=== PATIENT | female | born 1965 | race Caucasian/White ===

== ENCOUNTER 2021-07-11 08:46 | Outpatient (REF) | payer OTHER, SELFPAY ==
[2021-07-11 11:28] LABS: Appearance Urine CLEAR; Color Urine YELLOW; Glucose Urine UA NEG (NEG); Leukocyte Esterase Urine 1+ (NEG); Nitrite Urine NEG (NEG); PH 5.5 (5.0-8.0); Specific Gravity - Urine 1.015 (1.005-1.025); UACC Culture Trigger YES; Urine Blood NEG (NEG); Urine Ketones NEG (NEG); Urine Protein NEG (NEG-TRACE)
[2021-07-11 11:38] LABS: RBC Urine 0-2 /HPF (0); Squamous Epithelial Cell Urine 1+ /LPF; WBC Urine 0-2 /HPF (0-4)
[2021-07-11 11:39] LABS: Bacteria Urine TRACE /LPF
[2021-07-11 11:55] LABS: Alanine Aminotransferase 14 U/L (0-31); Albumin Level 4.3 g/dL (3.5-5.0); Alkaline Phosphatase 86 U/L (39-117); Anion Gap 14 (12-20); Aspartate Amino Transferase 16 U/L (5-31); Bilirubin Total 0.5 mg/dL (0.0-1.0); Blood Urea Nitrogen 10 mg/dL (9-16); Calcium 9.7 mg/dL (8.4-10.2); Carbon Dioxide 29 mmol/L (22-29); Chloride 105 mmol/L (96-108); Cholesterol 273 mg/dL; Estimated Glomerular Filt Rate > 60; Glucose Fasting 93 mg/dL (60-99); HDL Cholesterol 71 mg/dL; LDL Cholesterol Calculated 180 mg/dl; Sodium 143 mmol/L (135-145); Total Protein 7.2 g/dL (6.5-8.0); Triglycerides 112 mg/dL
[2021-07-11 12:17] LABS: TSH reflex Free T4 3.81 uIU/mL (0.32-4.0)
== END 2021-07-11 08:47 | disposition home or self-care (01) ==
LOC: HO.HMGCLDS 08:46
PROVIDERS: Visit Provider Nurse Practitioner Family
DX: Z00.00 Encounter for general adult medical examination without abnormal findings (principal); E78.5 Hyperlipidemia, unspecified; Z13.29 Encounter for screening for other suspected endocrine disorder
CPT/HCPCS: 36415; 80053; 80061; 81001; 84443; 87086; 87147

== ENCOUNTER → 2021-09-16 07:30 | Outpatient (REF) | payer OTHER, SELFPAY ==
--- NOTE | 2021-09-16 07:32 | CA_ITS ---
Transthoracic Echocardiogram Patient (Last, First, Middle): Kassidy Loredo, Gender: Female Date of : 1965 Age: 56 Procedure Date: 09/16/2021 Procedure Type: Transthoracic Echocardiogram Location: OP Height: 162.56 cm Weight: 58.97 kg BSA: 1.63 m2 Heart Rate: bpm BP: 146 / 78 mmHg [place] Head: DUC Referring MD: Blu Celis [facility] Symptoms: R01.1 - Cardiac murmur, unspecified Study Quality: Fair Conclusions: - Normal left ventricular size and systolic function. There is mildly increased left ventricular wall thickness. The visually estimated ejection fraction is between 55-60%. There is no evidence of regional wall motion abnormalities. Diastolic function is normal for age. - Normal right ventricular cavity size and systolic function. Findings Left Ventricle Normal left ventricular size and systolic function. There is mildly increased left ventricular wall thickness. The visually estimated ejection fraction is between 55-60%. There is no evidence of regional wall motion abnormalities. Diastolic function is normal for age. Right Ventricle Normal right ventricular cavity size and systolic function. Atria Both atria are normal in size. Aortic Valve Normal aortic valve structure and function. There is no aortic valve stenosis. There is no aortic valve regurgitation. Mitral Valve The mitral valve appears normal. There is trace mitral valve regurgitation. There is no mitral valve stenosis. Pulmonic Valve The pulmonic valve is likely normal. Tricuspid Valve Normal tricuspid valve structure. There is no tricuspid valve regurgitation. Normal right atrial pressure. There is no evidence of pulmonary hypertension. Great Vessels All visible segments of the aorta are normal in size. Venous The inferior vena cava is normal in size and collapses greater than 50% with inspiration. Pericardium/Pleural There is no evidence of pericardial effusion. Prior Study Comparison No prior study available for comparison. Measurements 2D Linear Measurements IVSd: 0.91 0.6-0.9/0.6-1.0 cm LVIDd: 4.54 3.9-5.3/4.2-5.9 cm LVIDd Index: 2.79 2.4-3.2/2.2-3.1 cm/m2 LVIDs: 3.23 2.0-3.6 cm LVPWd: 0.96 0.7-1.1 cm LA Diam: 3.40 2.7-3.8/3.0-4.0 cm LAIDs Index: 2.09 1.5-2.3 cm/m2 LV Mass: 176.08 67-162/88-224 g LV Mass Index: 108.02 43-95/49-115 g/m2 LVOT Diam: 1.90 3.0+(-)1.3 cm 2D Systolic Function EF 4C: 60.80 >55% EF 2C: 70.00 >55% EF BiP: 66.90 >55% Mitral Valve MV Pk E: 0.87 MV PK A: 0.80 MV Decel Time: 255.00 E/A: 1.10 E'Lateral: 10.10 E'Medial: 6.64 E/E' Med: 13.10 E/E' Lat: 8.60 PHT: 76.00 MVA PHT: 2.89 Decel Eagle: 3.35 Aortic Valve AoV Pk Aakash: 1.38 AoV Mn Aakash: 0.93 AoV VTI: 0.33 AoV Pk Grad: 8.00 Aov Mn Grad: 4.00 NIDHI Cont.VTI: 2.09 LVOT LVOT Pk Aakash: 1.02 LVOT Mn Aakash: 0.69 LVOT VTI: 0.24 LVOT Pk Grad: 4.00 LVOT Mn Grad: 2.00 LVOT Diam: 1.90 LVOT Area: 2.84 Diastolic Function MV Pk E: 0.87 MV Pk A: 0.80 E/A: 1.10 E'Medial: 6.64 E/E' Med: 13.10 E' Laterial: 10.10 E/E' Lat: 8.60 Right Ventricle TAPSE (mm): 26.50 TVS' Aakash: 9.46 Tricuspid Valve TR Pk Aakash: 1.82 TR Pk Grad: 13.00 RA Press: 3.00 RVSP: 16.00 Great Vessels Aorta Sinus of Valsalva: 3.12 2.0-3.[address] Ridge: 2.40 1.7-3.4 cm Ao Asc: 3.10 2.1-3.4 cm Ao Arch: 2.60 Updated in Other Vendor System with Status of Final Danial Robles MD electronically signed on 09/17/2021 11:17:29 PM with status of Final
[2021-09-16 09:36] LABS: Alanine Aminotransferase 59 U/L (0-31); Albumin Level 4.4 g/dL (3.5-5.0); Alkaline Phosphatase 96 U/L (39-117); Anion Gap 10 (12-20); Aspartate Amino Transferase 37 U/L (5-31); Bilirubin Total 1.1 mg/dL (0.0-1.0); Blood Urea Nitrogen 12 mg/dL (9-16); Calcium 9.5 mg/dL (8.4-10.2); Carbon Dioxide 31 mmol/L (22-29); Chloride 105 mmol/L (96-108); Cholesterol 224 mg/dL; Estimated Glomerular Filt Rate > 60; Glucose Fasting 95 mg/dL (60-99); HDL Cholesterol 79 mg/dL; LDL Cholesterol Calculated 133 mg/dl; Potassium 4.5 mmol/L (3.3-5.1); Sodium 141 mmol/L (135-145); Total Protein 6.9 g/dL (6.5-8.0); Triglycerides 64 mg/dL
== END ==
LOC: HO.CARD 07:30
PROVIDERS: PCP Nurse Practitioner Family; Visit Provider Nurse Practitioner Family
DX: R01.1 Cardiac murmur, unspecified (principal); R00.2 Palpitations; E78.5 Hyperlipidemia, unspecified
CPT/HCPCS: 36415; 80053; 80061; 93306

== ENCOUNTER 2021-10-01 08:17 | Outpatient (REF) | payer OTHER, SELFPAY ==
--- NOTE | ~2021-10-01 | MM_ITS ---
EXAMINATION: MM SCREENING DIGITAL BREAST TOMOSYNTHESIS, BILATERAL CLINICAL INFORMATION: Screening. Asymptomatic. The lifetime risk of breast cancer based on the Tyrer-Cuzick Model is 8%. COMPARISON: Outside mammography: 07/10/2020, 07/08/2019, 07/03/2017 ([place]) TECHNIQUE: Digital breast tomosynthesis is performed in both the craniocaudal and mediolateral oblique views along with computer-aided detection (CAD). Synthesized 2D images are generated from the tomosynthesis. FINDINGS: The breasts are heterogeneously dense, which may obscure small masses (ACR BI-RADS breast composition Category c). There are no significant masses, abnormal calcifications, or other abnormalities. Parenchymal pattern is similar to prior outside studies. No developing density or interval architectural abnormality. There is a biopsy clip marker again seen posterior upper right breast. The bilateral axilla and skin contours are unremarkable. MM/MM tomosynthesis screening BI IMPRESSION: No mammographic evidence of malignancy. ASSESSMENT: BI-RADS 1: Negative RECOMMENDATION: Routine annual mammography screening. This patient's information was entered into a reminder system with a target due date for their next mammogram.
== END 2021-10-01 08:18 | disposition home or self-care (01) ==
LOC: HO.MAMMO 08:17
PROVIDERS: Visit Provider Nurse Practitioner Family
DX: Z12.31 Encounter for screening mammogram for malignant neoplasm of breast (principal)
CPT/HCPCS: 77063; 77067

== ENCOUNTER 2021-11-05 09:23 | Outpatient (REF) | payer OTHER, SELFPAY ==
[2021-11-05 11:25] LABS: Alanine Aminotransferase 28 U/L (0-31); Alkaline Phosphatase 74 U/L (39-117); Aspartate Amino Transferase 24 U/L (5-31); Bilirubin Direct 0.2 mg/dL (0.0-0.5); Bilirubin Total 0.7 mg/dL (0.0-1.0); Total Protein 6.2 g/dL (6.5-8.0)
[2021-11-07 07:45] LABS: HBS Num1 3.71 mIU/mL (0-7.99); HBc Num1 0.08 S/CO (0.00-0.79); HBsAGNum1 0.21 S/CO (0.00-0.99); Hepatitis B Core Antibody Nonreactive (Nonreactive); Hepatitis B Surface Antigen Negative (Negative); ~HepC Num1 0.13 S/CO (0.00-0.79); ~Hepatitis B Surface Antibody NONREACTIVE (Nonreactive); ~Hepatitis C Antibody Nonreactive (Nonreactive)
[2021-11-09 08:05] LABS: Hepatitis A Antibody IgM 0.18 Index (0-0.79); ~Hepatitis A Antibody IgM Nonreactive (Nonreactive)
== END 2021-11-05 09:24 | disposition home or self-care (01) ==
LOC: HO.HMGCLDS 09:23
PROVIDERS: Visit Provider Nurse Practitioner Family
DX: R74.8 Abnormal levels of other serum enzymes (principal)
CPT/HCPCS: 36415; 80076; 86704; 86706; 86709; 86803; 87340

== ENCOUNTER → 2021-11-10 08:37 | Outpatient (BNVA) | payer OTHER, SELFPAY | PROVIDERS: PCP Nurse Practitioner Family; Referring Provider Nurse Practitioner Family; Visit Provider Nurse Practitioner | DX: Z12.11 Encounter for screening for malignant neoplasm of colon (principal) ==

== ENCOUNTER 2021-11-24 09:12 | Emergency (ER) | payer OTHER, SELFPAY ==
--- NOTE | ~2021-11-24 | XR_ITS ---
EXAMINATION: XR ELBOW, RIGHT CLINICAL INFORMATION: Fall COMPARISON: None TECHNIQUE: AP, lateral, and oblique views of the right elbow. FINDINGS: No fracture or dislocation. Alignment is anatomic. Joint spaces are maintained. No elbow joint effusion. The soft tissues are unremarkable. XR/XR elbow RT 2V IMPRESSION: Normal right elbow.
--- NOTE | ~2021-11-24 | XR_ITS ---
EXAMINATION: XR KNEE, RIGHT CLINICAL INFORMATION: Fall COMPARISON: None TECHNIQUE: Four views of the right knee. FINDINGS: No acute fracture or subluxation. Compartmental joint spaces are maintained. No joint effusion. Enthesophyte formation at the patella. The soft tissues are unremarkable. XR/XR knee RT 4V IMPRESSION: No fracture or malalignment.
--- NOTE | ~2021-11-24 | CT_ITS ---
EXAMINATION: CT HEAD WITHOUT CONTRAST CLINICAL INFORMATION: Fall COMPARISON: None. TECHNIQUE: Contiguous axial imaging was performed from the skull base to vertex without intravenous contrast. This CT examination was performed using dose optimization techniques as appropriate, variously including the following: * Automated exposure control * Adjustment of mA and/or kV according to patient size (this includes techniques or standardized protocols for targeted exams where dose is matched to indication/reason for exam; i.e. extremities or head) Use of iterative reconstruction technique DLP: 622 mGy-cm. FINDINGS: There is no evidence of acute intracranial hemorrhage or territorial infarction. No abnormal mass effect or midline shift is seen. Rodriguez to white matter differentiation is well preserved. No extra-axial fluid collections are identified. No hydrocephalus. Proportional prominence of the ventricles and sulcal spaces is consistent with mild volume loss. Patchy periventricular and deep white matter hypoattenuation is consistent with mild small vessel ischemic changes. The osseous structures and soft tissues are normal. The mastoid air cells are well aerated. Air-fluid level in the right maxillary sinus. Mild mucoperiosteal thickening of the left maxillary sinus. Mild opacification throughout the ethmoid air cells. CT/CT head/brain wo con IMPRESSION: No acute intracranial pathology.
--- NOTE | ~2021-11-24 | XR_ITS ---
EXAMINATION: XR CHEST CLINICAL INFORMATION: Fall COMPARISON: None TECHNIQUE: 2 views of the chest were obtained. FINDINGS: The lungs are well expanded. There is no focal consolidation, edema, or effusion. No pneumothorax. The cardiomediastinal silhouette is within normal limits. No acute osseous abnormality. Epigastric surgical clips. XR/XR chest 2V IMPRESSION: No acute pulmonary finding. No displaced fractures are seen.
[2021-11-24 09:23] VITALS: BP 160/90; BP 165/92; PULSE 60; PULSE 62; RESP 18; TEMP 36.7; O2SAT 98; O2SAT 99; BMI 22.8
--- NOTE | 2021-11-24 09:56 | ED_ITS ---
HPI - Fall General Chief Complaint: Fall Stated Complaint: TRIP/FALL,LIP LAC,R KNEE ABRAS,HEAD PAIN,+CCOLLAR Time Seen by Provider: 11/24/21 09:42 Source: patient Mode of arrival: EMS Limitations: no limitations History of Present Illness MD complaint: fall Onset (ago): minute(s) (just prior to arrival) Fall from: standing Fall witnessed: yes, by bystander Place fall occurred: street (outside of work) Loss of consciousness: none Prolonged down time: no Symptoms prior to fall: none Context: tripped/slipped Location of injury: head, face (lip) and chest Location of injury - extremities: right: arm and knee Severity: moderate Quality: dull and aching Associated symptoms (after fall): headache, chest pain and other (knee and elbow pain) Related Data Home Medications Medication Instructions Recorded Confirmed loratadine 10 mg tablet (Allergy 10 mg PO DAILY PRN 06/30/21 11/10/21 Relief (loratadine)) multivitamin 1 tab PO DAILY 11/10/21 11/10/21 Previous Rx's Medication Instructions Recorded levothyroxine 75 mcg tablet 75 mcg PO DAILY 90 Days #90 tab 08/27/21 citalopram 20 mg tablet 20 mg PO DAILY 90 Days #90 tab 09/24/21 atorvastatin 20 mg tablet 20 mg PO BEDTIME 90 Days #90 tab 11/05/21 losartan 100 mg tablet 100 mg PO DAILY 90 Days #90 tab 11/10/21 ondansetron 4 mg disintegrating 4 mg PO Q8H PRN #20 tab 11/24/21 tablet Allergies Allergy/AdvReac Type Severity Reaction Status Date / Time lisinopril AdvReac Mild Cough Verified 11/24/21 09:23 Review of Systems Review of Systems: Constitutional : No Fever, No Chills ENT/Mouth : No Ear Pain, No Hoarseness, No sore throat Eyes: No Eye Pain, No Swelling, No Redness, No Foreign Body Cardiovascular : pos Chest Pain, No SOB Respiratory : No Cough, No Dyspnea Gastrointestinal : No Nausea, No Vomiting, No Diarrhea, No abdominal Pain Genitourinary : No Dysuria, No Hematuria Musculoskeletal : positive joint pain, No Myalgias, No Joint Swelling Skin : No Skin lacerations, No rash Neuro : No Weakness, No Numbness, No Loss of Consciousness, No Dizziness, pos Headache Psych : No Anxiety/Panic, No Depression Heme/Lymph: no easy bruising, no Lymphadenopathy Endocrine : No Polyuria, No Polydipsia All other systems reviewed and are negative [facility] Past Medical History Attestation statement: The following information was validated with the patient. Medical History Encounter for other plastic and reconstructive surgery following medical procedure or healed injury H/O idiopathic thrombocytopenic purpura HTN (hypertension) Squamous cell carcinoma in situ Surgical History H/O splenectomy H/O squamous cell carcinoma excision History of hysterectomy History of tubal ligation Social History Social History Housing: House Patient Tobacco Use Status: Former Tobacco user Years Smoked: quit 15 years ago e-Cigarette/Vaping Use: Never Used Second Hand Smoke Exposure: No Advance Directives: No Advance Directives Information Provided: No service: No Current occupational status: employed Current occupation: [employer] Current occupational exposures/hazards: Yes Cognitive needs: No Hearing needs: No Vision needs: No Physical Exam Vital Signs: Vital Signs: Last Vital Signs Temp 98.0 F 11/24/21 09:23 Pulse 71 11/24/21 11:21 Resp 18 11/24/21 09:23 BP 159/84 H 11/24/21 11:21 Pulse Ox 99 11/24/21 11:21 BMI result Body Mass Index 22.8 Appearance: Alert. Oriented X3. No acute distress. Eyes: Pupils equal, round and reactive to light. ENT: Pharynx normal. Contused tissue to left upper lip small abrasion noted no laceration, bite normal, no facial pain, nose normal Neck: Normal inspection. Neck supple. collar removed - no midline ttp, full ROM no radicular symptoms CVS: Normal heart rate and rhythm. Pulses normal. Chest: L sided chest wall reproduces pain Respiratory: No respiratory distress. Breath sounds normal. Back: no midline ttp or trauma Abdomen: Soft and nontender. Skin: Skin warm and dry. Normal skin color. Normal skin turgor. Extremities: No lower extremity edema. R elbow abrasion noted but full ROM, R knee abrasion and ecchymosis noted over patella - distal NV intact Neuro: Oriented X 3. No motor deficit. No sensory deficit. Course Course Course Narrative: no acute fractures seen stable for DC GCS 15 MDM - Fall MDM Narrative Medical decision making narrative: 56 yo female with hx of HTN here with mechanical fall outside of her work hit head has abrasion to left upper lip, R knee injury and R elbow injury - at this time will obtain CT head to r/o ICH, R elbow and R knee xray. Tylenol for pain. GCS 15. c/o chest wall pain as well - EKG and CXR ordered. ECG Data Attestation: I personally reviewed and interpreted this ECG as follows: ECG interpretation date: 11/24/21 ECG interpretation time: 11:12 Interpretation: Rate: 58 Rhythm: sinus bradycardia Spearman: normal Normal P waves. Normal JERICHO. Normal QRS complex. ST T wave : normal no JAZZY qTC: normal prior studies: no acute ischemia The study has been interpreted contemporaneously by me. Discharge Plan Discharge Clinical Impression: Contusion, Abrasion, Contusion of knee, Head injury, Abrasion of lip Patient Disposition: Home, Self-Care Instructions: Head Injury (ED), Contusion in Adults (ED), Bone Bruise (ED), Abrasion (ED) Additional Instructions: return to ED for any worsening symptoms or concerns no fractures seen on CT scan, xrays of right elbow or right knee, EKG and chest xray were normal your CT head shows some nonspecific small microvascular disease please follow up with your doctor - likely related to high blood pressure Prescriptions: New ondansetron 4 mg tablet,disintegrating 4 mg PO Q8H PRN (Reason: nausea and vomiting) Qty: 20 0RF No Action levothyroxine 75 mcg tablet 75 mcg PO DAILY 90 Days Qty: 90 0RF citalopram 20 mg tablet 20 mg PO DAILY 90 Days Qty: 90 0RF atorvastatin 20 mg tablet 20 mg PO BEDTIME 90 Days Qty: 90 1RF loratadine [Allergy Relief (loratadine)] 10 mg tablet 10 mg PO DAILY PRN0RF losartan 100 mg tablet 100 mg PO DAILY 90 Days Qty: 90 0RF multivitamin Tablet 1 tab PO DAILY 0RF Referrals: Blu Celis, REHAB/PRE VOCATIONAL COUNSELOR-BC [Primary Care Provider] - 11/28/21 Stand Alone Forms: Work/School Release
--- NOTE | 2021-11-24 10:08 | ECG_ITS ---
Test Reason : fall Blood Pressure : / mmHG Vent. Rate : 058 BPM Atrial Rate : 058 BPM P-R Int : 132 ms QRS Dur : 090 ms QT Int : 438 ms P-R-T Axes : 057 061 063 degrees QTc Int : 429 ms Sinus bradycardia Otherwise normal ECG No previous ECGs available Referred By: Ann Connor Electronically Signed By:NATE MERCHANT MD
[2021-11-24] MEDS: Ibuprofen 600 MG TABLET PO (11:19)
[2021-11-24 11:21] VITALS: BP 159/84; PULSE 71; O2SAT 99
== END 2021-11-24 11:39 | disposition home or self-care (01) ==
PROVIDERS: Emergency Provider Emergency Medicine; PCP Nurse Practitioner Family
DX: S00.511A Abrasion of lip, initial encounter (principal); S09.90XA Unspecified injury of head, initial encounter; S80.01XA Contusion of right knee, initial encounter; S59.901A Unspecified injury of right elbow, initial encounter; I10 Essential (primary) hypertension; W01.0XXA Fall on same level from slipping, tripping and stumbling without subsequent striking against object, initial encounter; Y93.9 Activity, unspecified; Y92.410 Unspecified street and highway as the place of occurrence of the external cause; Y99.0 Civilian activity done for income or pay
CPT/HCPCS: 70450; 71046; 73070; 73564; 93005; 99284

== ENCOUNTER 2022-01-28 08:20 | Outpatient (REF) | payer OTHER, SELFPAY ==
[2022-01-28 11:21] LABS: Alanine Aminotransferase 20 U/L (0-31); Albumin Level 4.2 g/dL (3.5-5.0); Alkaline Phosphatase 84 U/L (39-117); Anion Gap 13 (12-20); Aspartate Amino Transferase 18 U/L (5-31); Bilirubin Total 0.9 mg/dL (0.0-1.0); Blood Urea Nitrogen 13 mg/dL (9-16); Carbon Dioxide 29 mmol/L (22-29); Chloride 104 mmol/L (96-108); Cholesterol 186 mg/dL; Estimated Glomerular Filt Rate > 60; Glucose Fasting 95 mg/dL (60-99); HDL Cholesterol 68 mg/dL; LDL Cholesterol Calculated 108 mg/dl; Potassium 4.4 mmol/L (3.3-5.1); Sodium 142 mmol/L (135-145); Total Protein 6.5 g/dL (6.5-8.0); Triglycerides 51 mg/dL
== END 2022-01-28 08:21 | disposition home or self-care (01) ==
LOC: HO.HMGCLDS 08:20
PROVIDERS: PCP Nurse Practitioner Family; Visit Provider Nurse Practitioner Family
DX: E78.5 Hyperlipidemia, unspecified (principal); R74.8 Abnormal levels of other serum enzymes
CPT/HCPCS: 36415; 80053; 80061

== ENCOUNTER 2022-07-01 09:23 | Outpatient (REF) | payer OTHER, SELFPAY ==
[2022-07-01 11:09] LABS: MANUAL DIFF FLAG NO
[2022-07-01 11:12] LABS: Appearance Urine Clear; Color Urine Yellow; Glucose Urine UA Negative (Negative); Leukocyte Esterase Urine Small (1+) (Negative); Nitrite Urine Negative (Negative); UMIC TRIGGER UACC YES; Urine Blood Negative (Negative); Urine Ketones Negative (Negative); Urine Protein 30 (1+) mg/dL (Neg-Trace)
[2022-07-01 11:12] LABS: Basophils Absolute Auto 0.1 X10*3/uL (0.0-0.2); Basophils Percent Auto 1.4 % (0-2); Eosinophils Absolute Auto 0.6 X10*3/uL (0.0-0.4); Eosinophils Percent Auto 8.2 % (0-4); Hematocrit 43.7 % (37.0-47.0); Hemoglobin 14.3 g/dl (12.0-16.0); Imm Gran Abs Auto 0.02 X10*3/uL (0.00-0.03); Imm Gran Pct Auto 0.3 % (0.0-0.4); Lymphocytes Absolute Auto 2.6 X10*3/uL (1.2-4.9); Lymphocytes Percent Auto 35.3 % (20-40); Mean Corpuscular HGB Conc 32.7 g/dl (31.0-35.0); Mean Corpuscular Hemoglobin 31.5 pg (27.0-33.0); Mean Corpuscular Volume 96.3 fL (80.0-98.0); Mean Platelet Volume 10.7 fL (9.4-12.3); Monocytes Absolute Auto 0.7 X10*3/uL (0.1-1.2); Monocytes Percent Auto 9.3 % (2-11); Neutrophils Absolute Auto 3.4 x10*3/uL (2.0-8.3); Neutrophils Percent Auto 45.5 % (45-73); Platelet Count 424 X10*3/uL (160-400); Red Blood Count 4.54 X10*6/uL (4.20-5.50); Red Cell Distribution Width 13.4 % (11.0-16.0); White Blood Count 7.4 X10*3/uL (4.8-10.8)
[2022-07-01 11:24] LABS: Alanine Aminotransferase 18 U/L (0-31); Albumin Level 4.4 g/dL (3.5-5.0); Alkaline Phosphatase 93 U/L (39-117); Anion Gap 15 (12-20); Aspartate Amino Transferase 20 U/L (5-31); Bilirubin Total 0.9 mg/dL (0.0-1.0); Blood Urea Nitrogen 11 mg/dL (9-16); Calcium 9.6 mg/dL (8.4-10.2); Carbon Dioxide 27 mmol/L (22-29); Chloride 106 mmol/L (96-108); Cholesterol 209 mg/dL; Estimated Glomerular Filt Rate > 60; Glucose Fasting 100 mg/dL (60-99); HDL Cholesterol 69 mg/dL; LDL Cholesterol Calculated 125 mg/dl; Potassium 4.8 mmol/L (3.3-5.1); Sodium 143 mmol/L (135-145); Total Protein 6.7 g/dL (6.5-8.0); Triglycerides 77 mg/dL
[2022-07-01 11:26] LABS: Bacteria Urine None Seen (None Seen); RBC Urine 0-2 /HPF (0-2); UACC Culture Trigger YES; WBC Urine 0-5 /HPF (0-5)
[2022-07-01 11:48] LABS: TSH reflex Free T4 5.61 uIU/mL (0.32-4.0)
[2022-07-01 12:36] LABS: Free T4 (Free Thyroxine) 1.12 ng/dL (0.71-1.85)
== END 2022-07-01 09:24 | disposition home or self-care (01) ==
LOC: HO.HMGCLDS 09:23
PROVIDERS: PCP Nurse Practitioner Family; Visit Provider Nurse Practitioner Family
DX: I10 Essential (primary) hypertension (principal)
CPT/HCPCS: 36415; 80053; 80061; 81001; 84439; 84443; 85025; 87086; 87147

== ENCOUNTER 2022-07-25 08:26 | Outpatient (REF) | payer OTHER, SELFPAY ==
--- NOTE | ~2022-07-25 | XR_ITS ---
EXAMINATION: XR FOOT, LEFT CLINICAL INFORMATION: Contusion in the left foot. COMPARISON: None TECHNIQUE: AP, lateral, and oblique views of the left foot. FINDINGS: No evidence of acute fractures or subluxation. No cortical erosion or destructive changes to suspect osteomyelitis. Diffuse nonspecific soft tissue swelling. No unexpected radiopaque foreign bodies. XR/XR foot LT min 3V IMPRESSION: 1. No acute fractures or subluxation. 2. Diffuse soft tissue swelling. 3. No radiographic evidence of osteomyelitis. However, early osteomyelitis may be occult and if clinically deemed appropriate correlation with an MR could be obtained.
== END 2022-07-25 08:27 | disposition home or self-care (01) ==
LOC: HO.HMGCX 08:26
PROVIDERS: PCP Nurse Practitioner Family; Visit Provider Internal Medicine
DX: S90.32XA Contusion of left foot, initial encounter (principal); X58.XXXA Exposure to other specified factors, initial encounter; Y93.9 Activity, unspecified; Y92.9 Unspecified place or not applicable; Y99.9 Unspecified external cause status
CPT/HCPCS: 73630

== ENCOUNTER 2022-08-29 07:07 | Outpatient (REF) | payer OTHER, SELFPAY ==
[2022-08-29 12:15] LABS: TSH reflex Free T4 8.46 uIU/mL (0.32-4.0)
[2022-08-29 14:16] LABS: Free T4 (Free Thyroxine) 0.98 ng/dL (0.71-1.85)
== END 2022-08-29 07:08 | disposition home or self-care (01) ==
LOC: HO.HMGCLDS 07:07
PROVIDERS: PCP Nurse Practitioner Family; Visit Provider Nurse Practitioner Family
DX: E03.9 Hypothyroidism, unspecified (principal)
CPT/HCPCS: 36415; 84439; 84443

== ENCOUNTER 2022-11-25 10:11 | Outpatient (REF) | payer OTHER, SELFPAY ==
--- NOTE | ~2022-11-25 | MM_ITS ---
EXAMINATION: MM SCREENING DIGITAL BREAST TOMOSYNTHESIS, BILATERAL CLINICAL INFORMATION: Screening. Asymptomatic. The lifetime risk of breast cancer based on the Tyrer-Cuzick Model is 7%. COMPARISON: Mammography: 10/01/2021; outside mammography 07/10/2020, 07/08/2019 ([place]). TECHNIQUE: Digital breast tomosynthesis is performed in both the craniocaudal and mediolateral oblique views along with computer-aided detection (CAD). Synthesized 2D images are generated from the tomosynthesis. FINDINGS: The breasts are heterogeneously dense, which may obscure small masses (ACR BI-RADS breast composition Category c). There is a fibronodular parenchymal pattern with scattered minor stable asymmetries. There are no significant masses, abnormal calcifications, or other abnormalities. No developing density or architectural abnormality. There is a biopsy clip marker again seen posterior 12:30 right breast. The axilla and skin contours are unremarkable. No significant changes. MM/MM tomosynthesis screening BI IMPRESSION: No mammographic evidence of malignancy. ASSESSMENT: BI-RADS 2: Benign RECOMMENDATION: Routine annual mammography screening. This patient's information was entered into a reminder system with a target due date for their next mammogram.
== END 2022-11-25 10:12 | disposition home or self-care (01) ==
LOC: HO.MAMMO 10:11
PROVIDERS: PCP Nurse Practitioner Family; Visit Provider Nurse Practitioner Family
DX: Z12.31 Encounter for screening mammogram for malignant neoplasm of breast (principal)
CPT/HCPCS: 77063; 77067

== ENCOUNTER 2022-11-29 07:53 | Outpatient (REF) | payer OTHER, SELFPAY ==
[2022-11-29 11:11] LABS: MANUAL DIFF FLAG NO
[2022-11-29 11:21] LABS: Appearance Urine Turbid; Color Urine Dark Yellow; Glucose Urine UA Negative (Negative); Leukocyte Esterase Urine Small (1+) (Negative); Nitrite Urine Negative (Negative); PH 5.5 (5.0-9.0); UMIC TRIGGER UACC YES; Urine Blood Negative (Negative); Urine Ketones Negative (Negative); Urine Protein Negative (Neg-Trace)
[2022-11-29 11:23] LABS: Basophils Absolute Auto 0.1 X10*3/uL (0.0-0.2); Basophils Percent Auto 1.4 % (0-2); Eosinophils Absolute Auto 0.9 X10*3/uL (0.0-0.4); Eosinophils Percent Auto 11.5 % (0-4); Hematocrit 43.6 % (37.0-47.0); Hemoglobin 14.2 g/dl (12.0-16.0); Imm Gran Abs Auto 0.02 X10*3/uL (0.00-0.03); Imm Gran Pct Auto 0.2 % (0.0-0.4); Lymphocytes Absolute Auto 2.6 X10*3/uL (1.2-4.9); Lymphocytes Percent Auto 31.9 % (20-40); Mean Corpuscular HGB Conc 32.6 g/dl (31.0-35.0); Mean Corpuscular Hemoglobin 30.9 pg (27.0-33.0); Mean Corpuscular Volume 94.8 fL (80.0-98.0); Mean Platelet Volume 10.8 fL (9.4-12.3); Monocytes Absolute Auto 0.8 X10*3/uL (0.1-1.2); Monocytes Percent Auto 10.4 % (2-11); Neutrophils Absolute Auto 3.6 x10*3/uL (2.0-8.3); Neutrophils Percent Auto 44.6 % (45-73); Platelet Count 416 X10*3/uL (160-400); Red Cell Distribution Width 13.9 % (11.0-16.0); White Blood Count 8.1 X10*3/uL (4.8-10.8)
[2022-11-29 11:28] LABS: Bacteria Urine None Seen (None Seen); RBC Urine 0-2 /HPF (0-2); Squamous Epithelial Cell Urine 0-2 /HPF (0-2); UACC Culture Trigger YES
[2022-11-29 11:47] LABS: Alanine Aminotransferase 17 U/L (0-31); Albumin Level 4.2 g/dL (3.5-5.0); Alkaline Phosphatase 97 U/L (39-117); Anion Gap 12 (12-20); Aspartate Amino Transferase 18 U/L (5-31); Bilirubin Total 1.3 mg/dL (0.0-1.0); Blood Urea Nitrogen 12 mg/dL (9-16); Calcium 9.7 mg/dL (8.4-10.2); Carbon Dioxide 29 mmol/L (22-29); Chloride 106 mmol/L (96-108); Estimated Glomerular Filt Rate > 60; Glucose Fasting 97 mg/dL (60-99); Potassium 4.3 mmol/L (3.3-5.1); Sodium 143 mmol/L (135-145); Total Protein 6.7 g/dL (6.5-8.0)
[2022-11-29 12:05] LABS: TSH reflex Free T4 5.43 uIU/mL (0.32-4.0)
[2022-11-29 12:36] LABS: Free T4 (Free Thyroxine) 1.15 ng/dL (0.71-1.85)
== END 2022-11-29 07:54 | disposition home or self-care (01) ==
LOC: HO.HMGCLDS 07:53
PROVIDERS: PCP Nurse Practitioner Family; Visit Provider Nurse Practitioner Family
DX: I10 Essential (primary) hypertension (principal); E03.9 Hypothyroidism, unspecified; R82.90 Unspecified abnormal findings in urine
CPT/HCPCS: 36415; 80053; 81001; 84439; 84443; 85025; 87086

== ENCOUNTER 2023-01-05 08:25 | Outpatient (AMB) | payer OTHER, SELFPAY ==
--- NOTE | 2023-01-05 08:59 | AM.OFFWIN_ITS ---
Intake Vital Signs 01/05/23 09:00 Height 5 ft 4 in BP 158/88 H Blood Pressure Location Rt brachial Position Sitting Pulse 70 Pulse Source Pulse Oximeter Temp 97.9 F Temp Source Temporal Artery Scan Pulse Oximetry (%) 98 Oxygen Delivery Method Room Air Intake Visit Reasons: EP swollen neck/voice [phone] Intake Note: pt is here for c/o swollen neck and states voice is raspy and feels like shes constantly clearing her throat. Patient Tobacco Use Status: Former Tobacco user Improvement Auditor Required: No Allergies lisinopril Adverse Reaction (Mild, Verified 01/05/23 09:00) Cough Do you need a note to return to daycare/school/sports/work: Yes HPI HPI Comments History of Present Illness Details This is a 57-year-old female presenting with neck left-sided neck swelling. Patient states she developed atraumatic and painless neck swelling last night. The swelling had significantly worsened when she woke up this morning. Patient states the swelling has actually improved significantly at this time. She denies any sore throat. She denies any difficulty breathing or difficulty swallowing. She denies any fevers or chills. She reports her voice is raspy . Patient does report feeling tired and fatigued for the past several weeks and she was planning on discussing this with her primary care physician at her visit next month [facility] Medical History Encounter for other plastic and reconstructive surgery following medical procedure or healed injury H/O idiopathic thrombocytopenic purpura HTN (hypertension) Squamous cell carcinoma in situ Surgical History H/O splenectomy H/O squamous cell carcinoma excision History of hysterectomy History of tubal ligation Hx of colonoscopy Social History Housing: House Patient Tobacco Use Status: Former Tobacco user Years Smoked: quit 15 years ago e-Cigarette/Vaping Use: Never Used Second Hand Smoke Exposure: No service: No Current occupational status: employed Current occupation: [employer] Current occupational exposures/hazards: Yes Cognitive needs: No Hearing needs: No Vision needs: No Review of Systems Const All systems reviewed & are unremarkable except as noted in HPI and below Denies body aches, Denies chills, Reports fatigue and Denies fever(s) Eyes Reports no additional complaints ENT Details: + neck swelling Denies change in voice (raspy), Denies dysphagia, Denies sore throat and Denies throat swelling Card Reports no additional complaints and Denies dyspnea Resp Denies dyspnea GI Reports no additional complaints and Denies dysphagia Reports no additional complaints Musc Reports no additional complaints Endo Reports fatigue Aller/Immun Denies throat swelling Physical Exam Vital Signs: Last Vital Signs Temp 97.9 F 01/05/23 09:00 Pulse 70 01/05/23 09:00 BP 158/88 H 01/05/23 09:00 Pulse Ox 98 01/05/23 09:00 Oxygen Delivery Method Room Air 01/05/23 09:00 Const General: cooperative and healthy appearing Orientation/consciousness: patient oriented x3 HEENT Throat: Yes posterior oropharynx normal, Yes tonsils normal, Yes uvula midline, No peritonsillar mass and No uvular edema Neck Neck: Yes anterior neck swelling (Left-sided.) Lymphatic: lymphadenopathy anterior cervical Resp Effort & Inspection: normal respiratory effort Auscultation: clear to auscultation bilaterally Cardio Rate: regular rate Rhythm: regular rhythm Heart sounds: no gallops, no murmurs and no rubs Skin General skin exam: no rashes or lesions noted Neuro General: patient oriented x3 Cranial nerves: Yes CN's II-XII intact bilaterally Results AMB Rapid Strep AMB Rapid Strep Negative Last Edit by JEAN PAUL Alexander on 01/05/23 09:32 Results Reviewed Results Reviewed: Laboratory Last Values Strep Scn Rapid Clinic Negative 01/05/23 09:31 Assessment & Plan Assessment & Plan (1) Neck swelling: Code(s): R22.1 - Localized swelling, mass and lump, neck Plan This is a 57-year-old past medical history significant for essential hyperte nsion, hyperlipidemia, and hypothyroidism who presented to the office with a traumatic/painless left-sided neck swelling. Physical exam is notable for left- sided neck swelling and anterior cervical lymphadenopathy on the left side. Posterior oropharyngeal exam is normal without unilateral tonsillar edema/hypertrophy, erythema, or exudate. Patient denies sore throat or fevers and she is afebrile in the office today. Very low suspicion for peritonsillar abscess. Rapid strep negative. Patient sent for ultrasound soft tissue of the neck for further evaluation. Patient instructed to follow-up here or the emergency room if she were to develop throat swelling, difficult swallowing, difficulty breathing, or fever/chills. Patient verbalizes understanding and she is agreeable with the plan. Orders: Orders US soft tiss head and/or neck Today R22.1 - Localized swelling, mass and lump, neck AMB Rapid Strep Screen Today Z13.9 - Encounter for screening, unspecified Coding Level of Care Code Est Pt Level 3 (28953) Diagnoses Neck swelling R22.1
[2023-01-05 09:00] VITALS: BP 158/88; PULSE 70; TEMP 36.6; O2SAT 98
== END 2023-01-05 10:27 | disposition home or self-care (01) ==
PROVIDERS: PCP Nurse Practitioner Family; Visit Provider Physician Assistant Medical
DX: R22.1 Localized swelling, mass and lump, neck (principal)
CPT/HCPCS: 87880; 99213

== ENCOUNTER 2023-01-05 10:18 | Outpatient (REF) | payer OTHER, SELFPAY ==
--- NOTE | ~2023-01-05 | US_ITS ---
EXAMINATION: US SOFT TISSUE NECK CLINICAL INFORMATION: Left neck swelling. Localized swelling, mass, lump. COMPARISON: None available. TECHNIQUE: Ultrasound of the neck soft tissues is performed with high- frequency blanco-scale imaging and color Doppler. FINDINGS: Within the left neck, two of the visualized level 2 lymph nodes measure 1.1 x 0.9 x 1.3 cm and 1.8 x 0.6 x 1.2 cm. A level 3 lymph node of the left neck with normal echogenic fatty hilum measures 1.6 x 0.6 x 1 cm. Sonographic imaging at level 2 of the right neck was performed for comparison purposes. A visualized right-sided level 2 lymph node is 2.9 x 0.9 x 1.4 cm. No evidence of a soft tissue mass or fluid collection within the visualized tissues. There are no lymph nodes with cystic changes or abnormal calcification. On color Doppler images, no evidence of hypervascular lymph nodes. US/US soft tiss head and/or neck IMPRESSION: The visualized lymph nodes of the left neck are within the range of normal size. The level 2 lymph nodes of the left neck measure up to 0.9 cm in short axis dimension. Also, the largest level 2 lymph node in the right neck is 0.9 cm in short axis dimension.
== END 2023-01-05 10:19 | disposition home or self-care (01) ==
LOC: HO.HMGCX 10:18
PROVIDERS: PCP Nurse Practitioner Family; Visit Provider Physician Assistant Medical
DX: R22.1 Localized swelling, mass and lump, neck (principal)
CPT/HCPCS: 76536

== ENCOUNTER 2023-02-07 07:49 | Outpatient (AMB) | payer OTHER, SELFPAY ==
[2023-02-07 07:54] VITALS: BP 128/80; PULSE 63; O2SAT 98; BMI 24.5
--- NOTE | 2023-02-07 07:54 | A.OFFPC_ITS ---
Vital Signs 02/07/23 07:54 Height 5 ft 4 in Weight 143 lb BMI 24.5 BP 128/80 Blood Pressure Location Rt brachial Position Sitting Pulse 63 Pulse Source Pulse Oximeter Pulse Oximetry (%) 98 Oxygen Delivery Method Room Air Intake Visit Reasons: PE Allergies lisinopril Adverse Reaction (Mild, Verified 02/07/23 08:41) Cough Medication List - Last Reconciled 02/07/23 by CECILY Appiah amlodipine 2.5 mg PO DAILY atorvastatin 20 mg PO DAILY levothyroxine 88 mcg PO DAILY 90 days loratadine (Allergy Relief (loratadine)) 10 mg PO DAILY PRN losartan 100 mg PO DAILY 90 days multivitamin 1 tab PO DAILY Tobacco use date assessed: 02/07/23 Dental Screening Dental Screen Date: 02/07/23 Did you have a dental visit in the last 12 months?: Yes Did you have a dental problem in the last 6 months where you did not have access to dental care?: No Was dental information given to patient?: Patient has dentist HPI PE HPI Details Pt is here for a PE. Will order labs. Cologuard is up to date. Mammo is up to date. complete hysterectomy, no longer sees travel manager. Pt c/o cough especially at night. She reports that this has been present since having COVID (October 2022). Will order chest xr. HTN: Will have pt monitor her blood pressure at home. Denies chest pain, shortness of breath, headache, dizziness, and blurred vision. [facility] Medical History Encounter for other plastic and reconstructive surgery following medical procedure or healed injury H/O idiopathic thrombocytopenic purpura HTN (hypertension) Squamous cell carcinoma in situ Surgical History H/O splenectomy H/O squamous cell carcinoma excision History of hysterectomy History of tubal ligation Hx of colonoscopy Social History Housing: House Patient Tobacco Use Status: Former Tobacco user Years Smoked: quit 15 years ago e-Cigarette/Vaping Use: Never Used Second Hand Smoke Exposure: No service: No Current occupational status: employed Current occupation: [employer] Current occupational exposures/hazards: Yes Cognitive needs: No Hearing needs: No Vision needs: No Questionnaire Thrive Questionnaire Date Thrive assessed: 06/30/21 YARIEL-7 AMB Questionnaire YARIEL-7 Date YARIEL - 7 assessed: 06/30/21 Source: Developed by Drs. Robin Manning, Lorri Shah, Segundo Flynn and colleagues, with an educational prakash from [employer]. Review of Systems Const Denies chills and Denies fever(s) Eyes Denies blurry vision ENT Denies vertigo, Denies dizziness and Denies sore throat Card Denies chest pain at rest, Denies chest pain with activity, Denies diaphoresis, Denies dyspnea and Denies dyspnea on exertion Resp Denies cough, Denies dyspnea, Denies dyspnea on exertion and Denies wheezing GI Denies abdominal pain, Denies melena, Denies hematochezia, Denies constipation, Denies diarrhea and Denies loose stools Denies hematuria Musc Denies numbness and Denies tingling Skin/Breast Denies lesions Neuro Denies vertigo, Denies dizziness, Denies numbness and Denies tingling Psych Denies anxiety, Denies depression, Denies homicidal ideation, Denies suicidal ideation and Denies other (substance abuse) Aller/Immun Denies wheezing Physical exam (Primary Care) Vital Signs: Last Vital Signs Pulse 63 02/07/23 07:54 BP 128/80 02/07/23 07:54 Pulse Ox 98 02/07/23 07:54 Oxygen Delivery Method Room Air 02/07/23 07:54 BMI result Body Mass Index 24.5 Tobacco/Smoking Status: Tobacco use Status Tobacco use date assessed 02/07/23 02/07/23 08:09 Patient Tobacco Use Status Former Tobacco user 02/07/23 07:54 e-Cigarette/Vaping Use Never Used 02/07/23 07:54 Thrive Assessment: Date of Thrive Assessment Date Thrive assessed 06/30/21 02/07/23 07:54 Const General: cooperative Nutritional Appearance: well nourished Orientation/consciousness: patient oriented x3 HENMT Head: Yes normal to inspection, Yes normocephalic and Yes atraumatic Ears: TM's normal bilaterally Eyes General: appearance normal, both eyes and all related structures Alignment and Position: alignment normal and position normal Neck Neck: Yes normal visual inspection and Yes no lymphadenopathy Thyroid: Thyroid normal Resp Effort & Inspection: normal respiratory effort Auscultation: clear to auscultation bilaterally Cardio Rate: regular rate Rhythm: regular rhythm Heart sounds: S1 normal heart sound present, S2 normal heart sound present and no murmurs GI Palpation (GI): Soft to palpation and nontender Auscultation: normal bowel sounds Skin Rashes: no rashes Neuro General: patient oriented x3, moves all extremities, no focal motor deficits and deep tendon reflexes 2+ bilaterally Romberg Test: Negative Psych Appearance: grossly normal Mental Status: mental status grossly normal Speech and movement: Normal speech and movement present Affect: normal affect Attitude: cooperative Thought process: Normal thought process present Thought content: Normal thought content present Insight: Good insight present (Psych) Judgement: Good judgement present (Psych) Assessment and Plan Assessment & Plan (1) Physical exam: Code(s): Z00.00 - Encounter for general adult medical examination without abnormal findings Plan: Labs ordered (2) Post-COVID chronic cough: Code(s): R05.3 - Chronic cough; U09.9 - Post COVID-19 condition, unspecified Plan: Chest xr ordered Plan The patient agreed to the use of a medical records library professor for this encounter. Scribed for CECILY Cooper by Mercedes Hopkins medical records library professor, on 02/07/2023 at 08:15 EST. Orders: Orders Comprehensive Bandon. Panel Fast Today Z00.00 - Encounter for general adult medical examination without abnormal findings Lipid Panel Today Z00.00 - Encounter for general adult medical examination without abnormal findings TSH reflex Free T4 Today Z00.00 - Encounter for general adult medical examination without abnormal findings Complete Blood Count Auto Diff Today Z00.00 - Encounter for general adult medical examination without abnormal findings UA CC w/rflx Micro + Cult Today Z00.00 - Encounter for general adult medical examination without abnormal findings XR chest 2V Today R05.3 - Chronic cough, U09.9 - Post COVID-19 condition, unspecified Coding Level of Care Code Est Pt Prev Care 40-64y(11225) Diagnoses Physical exam Z00.00 Post-COVID chronic cough R05.3; U09.9
== END 2023-02-07 08:34 | disposition home or self-care (01) ==
PROVIDERS: PCP Nurse Practitioner Family; Visit Provider Nurse Practitioner Family
DX: Z00.00 Encounter for general adult medical examination without abnormal findings (principal); R05.3 Chronic cough; U09.9 Post COVID-19 condition, unspecified
CPT/HCPCS: 99396

== ENCOUNTER 2023-02-07 08:35 | Outpatient (REF) | payer OTHER, SELFPAY ==
--- NOTE | ~2023-02-07 | XR_ITS ---
EXAMINATION: XR CHEST CLINICAL INFORMATION: Chronic cough COMPARISON: 11/24/2021 TECHNIQUE: 2 views of the chest. FINDINGS: The lungs are well-inflated. Redemonstration of biapical pleural thickening. Heart size within normal limits. Surgical clips in the left upper quadrant of the abdomen. Heart size normal. No focal consolidation to suggest pneumonia. No pleural effusion. Degenerative changes in the thoracic spine. XR/XR chest 2V IMPRESSION: No focal consolidation to suggest pneumonia.
== END 2023-02-07 08:36 | disposition home or self-care (01) ==
LOC: HO.HMGCX 08:35
PROVIDERS: PCP Nurse Practitioner Family; Visit Provider Nurse Practitioner Family
DX: R05.3 Chronic cough (principal)
CPT/HCPCS: 71046

== ENCOUNTER 2023-02-13 07:16 | Outpatient (REF) | payer OTHER, SELFPAY ==
[2023-02-13 11:16] LABS: MANUAL DIFF FLAG NO
[2023-02-13 11:24] LABS: Basophils Absolute Auto 0.1 X10*3/uL (0.0-0.2); Basophils Percent Auto 1.3 % (0-2); Eosinophils Absolute Auto 0.7 X10*3/uL (0.0-0.4); Eosinophils Percent Auto 9.2 % (0-4); Hematocrit 43.5 % (37.0-47.0); Hemoglobin 13.8 g/dl (12.0-16.0); Imm Gran Abs Auto 0.01 X10*3/uL (0.00-0.03); Imm Gran Pct Auto 0.1 % (0.0-0.4); Lymphocytes Absolute Auto 2.5 X10*3/uL (1.2-4.9); Lymphocytes Percent Auto 31.9 % (20-40); Mean Corpuscular HGB Conc 31.7 g/dl (31.0-35.0); Mean Corpuscular Hemoglobin 30.3 pg (27.0-33.0); Mean Corpuscular Volume 95.6 fL (80.0-98.0); Mean Platelet Volume 10.7 fL (9.4-12.3); Monocytes Absolute Auto 0.7 X10*3/uL (0.1-1.2); Monocytes Percent Auto 9.6 % (2-11); Neutrophils Absolute Auto 3.7 x10*3/uL (2.0-8.3); Neutrophils Percent Auto 47.9 % (45-73); Platelet Count 455 X10*3/uL (160-400); Red Blood Count 4.55 X10*6/uL (4.20-5.50); Red Cell Distribution Width 13.6 % (11.0-16.0); White Blood Count 7.7 X10*3/uL (4.8-10.8)
[2023-02-13 11:30] LABS: Appearance Urine Clear; Color Urine Yellow; Glucose Urine UA Negative (Negative); Leukocyte Esterase Urine Small (1+) (Negative); Nitrite Urine Negative (Negative); UMIC TRIGGER UACC YES; Urine Blood Negative (Negative); Urine Ketones Negative (Negative); Urine Protein Negative (Neg-Trace)
[2023-02-13 11:47] LABS: Bacteria Urine None Seen (None Seen); Hyaline Casts Urine 0-2 /LPF (0-2); RBC Urine 0-2 /HPF (0-2); Squamous Epithelial Cell Urine 0-2 /HPF (0-2); UACC Culture Trigger YES; WBC Urine 0-5 /HPF (0-5)
[2023-02-13 11:53] LABS: Alanine Aminotransferase 18 U/L (0-31); Albumin Level 4.2 g/dL (3.5-5.0); Alkaline Phosphatase 84 U/L (39-117); Anion Gap 13 (12-20); Aspartate Amino Transferase 19 U/L (5-31); Bilirubin Total 0.8 mg/dL (0.0-1.0); Blood Urea Nitrogen 13 mg/dL (9-16); Calcium 9.5 mg/dL (8.4-10.2); Carbon Dioxide 28 mmol/L (22-29); Chloride 105 mmol/L (96-108); Cholesterol 182 mg/dL (<200); Estimated Glomerular Filt Rate > 60; Glucose Fasting 92 mg/dL (60-99); HDL Cholesterol 65 mg/dL (>40); LDL Cholesterol Calculated 105 mg/dL (<100); Potassium 4.5 mmol/L (3.3-5.1); Sodium 141 mmol/L (135-145); Total Protein 6.8 g/dL (6.5-8.0); Triglycerides 62 mg/dL (<150)
[2023-02-13 12:11] LABS: TSH reflex Free T4 2.79 uIU/mL (0.32-4.0)
== END 2023-02-13 07:17 | disposition home or self-care (01) ==
LOC: HO.HMGCLDS 07:16
PROVIDERS: PCP Nurse Practitioner Family; Visit Provider Nurse Practitioner Family
DX: Z00.00 Encounter for general adult medical examination without abnormal findings (principal); R82.90 Unspecified abnormal findings in urine; Z20.2 Contact with and (suspected) exposure to infections with a predominantly sexual mode of transmission; E03.9 Hypothyroidism, unspecified; E78.5 Hyperlipidemia, unspecified
CPT/HCPCS: 36415; 80053; 80061; 81001; 84443; 85025; 87086

== ENCOUNTER 2023-04-02 10:05 | Outpatient (REF) | payer OTHER, SELFPAY ==
[2023-04-02 13:35] LABS: MANUAL DIFF FLAG NO
[2023-04-02 13:44] LABS: Basophils Absolute Auto 0.1 X10*3/uL (0.0-0.2); Basophils Percent Auto 1.6 % (0-2); Eosinophils Absolute Auto 0.7 X10*3/uL (0.0-0.4); Eosinophils Percent Auto 8.5 % (0-4); Hematocrit 42.6 % (37.0-47.0); Hemoglobin 13.6 g/dl (12.0-16.0); Imm Gran Abs Auto 0.04 X10*3/uL (0.00-0.03); Imm Gran Pct Auto 0.5 % (0.0-0.4); Lymphocytes Absolute Auto 2.5 X10*3/uL (1.2-4.9); Lymphocytes Percent Auto 29.4 % (20-40); Mean Corpuscular HGB Conc 31.9 g/dl (31.0-35.0); Mean Corpuscular Hemoglobin 30.8 pg (27.0-33.0); Mean Corpuscular Volume 96.6 fL (80.0-98.0); Mean Platelet Volume 10.8 fL (9.4-12.3); Monocytes Absolute Auto 0.9 X10*3/uL (0.1-1.2); Monocytes Percent Auto 9.8 % (2-11); Neutrophils Absolute Auto 4.3 x10*3/uL (2.0-8.3); Neutrophils Percent Auto 50.2 % (45-73); Platelet Count 434 X10*3/uL (160-400); Red Blood Count 4.41 X10*6/uL (4.20-5.50); White Blood Count 8.6 X10*3/uL (4.8-10.8)
== END 2023-04-02 10:06 | disposition home or self-care (01) ==
LOC: HO.HMGCLDS 10:05
PROVIDERS: PCP Nurse Practitioner Family; Visit Provider Nurse Practitioner Family
DX: D75.839 Thrombocytosis, unspecified (principal); E03.9 Hypothyroidism, unspecified; M79.673 Pain in unspecified foot
CPT/HCPCS: 36415; 81001; 84443; 84550; 85025

== ENCOUNTER 2023-04-12 15:35 | Outpatient (REF) | payer OTHER, SELFPAY ==
--- NOTE | ~2023-04-12 | XR_ITS ---
EXAMINATION: XR FOOT, RIGHT CLINICAL INFORMATION: Right foot pain. COMPARISON: None available. TECHNIQUE: AP, lateral, and oblique views of the right foot. FINDINGS: Diffuse demineralization. Alignment and articulations are maintained. No fracture, dislocation or bony erosions. Trace calcaneal spurring. Benign-appearing calcaneal sclerotic density. XR/XR foot RT 2V IMPRESSION: No acute bony pathology.
== END 2023-04-12 15:36 | disposition home or self-care (01) ==
LOC: HO.HMGCX 15:35
PROVIDERS: PCP Nurse Practitioner Family; Visit Provider Nurse Practitioner Family
DX: M79.671 Pain in right foot (principal)
CPT/HCPCS: 73620

== ENCOUNTER 2023-05-05 08:42 | Outpatient (REF) | payer OTHER, SELFPAY ==
[2023-05-05 12:02] LABS: MANUAL DIFF FLAG NO
[2023-05-05 12:12] LABS: Basophils Absolute Auto 0.1 X10*3/uL (0.0-0.2); Basophils Percent Auto 1.4 % (0-2); Eosinophils Absolute Auto 0.8 X10*3/uL (0.0-0.4); Eosinophils Percent Auto 10.5 % (0-4); Hematocrit 40.9 % (37.0-47.0); Hemoglobin 13.4 g/dl (12.0-16.0); Imm Gran Abs Auto 0.02 X10*3/uL (0.00-0.03); Imm Gran Pct Auto 0.3 % (0.0-0.4); Lymphocytes Absolute Auto 2.8 X10*3/uL (1.2-4.9); Lymphocytes Percent Auto 37.5 % (20-40); Mean Corpuscular HGB Conc 32.8 g/dl (31.0-35.0); Mean Corpuscular Hemoglobin 30.7 pg (27.0-33.0); Mean Corpuscular Volume 93.8 fL (80.0-98.0); Mean Platelet Volume 10.5 fL (9.4-12.3); Monocytes Absolute Auto 0.8 X10*3/uL (0.1-1.2); Neutrophils Absolute Auto 2.9 x10*3/uL (2.0-8.3); Neutrophils Percent Auto 39.3 % (45-73); Platelet Count 480 X10*3/uL (160-400); Red Blood Count 4.36 X10*6/uL (4.20-5.50); Red Cell Distribution Width 13.8 % (11.0-16.0); White Blood Count 7.4 X10*3/uL (4.8-10.8)
[2023-05-05 12:32] LABS: Uric Acid 2.9 mg/dL (2.4-5.7)
[2023-05-05 13:00] LABS: Erythrocyte Sedimentation Rate 5 MM/HR (0-20)
== END 2023-05-05 08:43 | disposition home or self-care (01) ==
LOC: HO.HMGCLDS 08:42
PROVIDERS: PCP Nurse Practitioner Family; Visit Provider Nurse Practitioner Family
DX: D75.839 Thrombocytosis, unspecified (principal); M79.673 Pain in unspecified foot
CPT/HCPCS: 36415; 84550; 85025; 85652; 86140

== ENCOUNTER 2023-05-07 07:16 | Outpatient (REF) | payer OTHER, SELFPAY ==
--- NOTE | ~2023-05-07 | MR_ITS ---
EXAMINATION: MR FOOT WITHOUT CONTRAST, RIGHT CLINICAL INFORMATION: Right forefoot pain. Additional posterior heel pain. COMPARISON: Right foot radiographs dated 04/12/2023. TECHNIQUE: Multisequence MR imaging of the right foot was obtained without contrast on a high-field strength scanner. FINDINGS: BONE: Along the distal aspect of the cuboid articular surface, adjacent to the fourth tarsometatarsal joint, there is a linear focus of low-T1/low-T2 signal measuring up to 0.9 cm in ML dimension (coronal image 10/20) which contacts the articular surface. Prominent marrow edema throughout the entirety of the cuboid. Findings are consistent with a nondisplaced subchondral fracture. Partially visualized marrow edema within the adjacent anterior calcaneal process which could represent a stress reaction or osseous contusion. Additional patchy areas of marrow edema within the navicula and cuneiforms which could represent stress reactions or osseous contusions. No additional fracture line identified, however, bony detail limited on MR examination. Articular cartilage thinning with areas of full-thickness loss and subchondral cystic change at the second through fourth tarsometatarsal joints. Subchondral cystic changes most prominent within the fourth metatarsal. There is edema extending through the diaphysis and into the head of the third metatarsal with mild adjacent soft tissue edema, consistent with a stress reaction/osseous contusion. No associated fracture line. More mild findings seen within the third proximal phalanx. MUSCLES/TENDONS: The visualized flexor and extensor tendons are intact. No transverse tendon tear or tendon retraction. LIGAMENTS: Intact Lisfranc ligament. 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 Mild dorsal subcutaneous edema. MR/MR foot RT wo con IMPRESSION: 1. Nondisplaced subchondral fracture at the distal aspect of the cuboid adjacent to the fourth tarsometatarsal joint with prominent marrow edema throughout the entirety of the cuboid. 2. Additional marrow edema within the anterior calcaneal process as well as within the navicula and cuneiforms which could represent stress reactions or osseous contusions. No additional fracture line identified, however, bony detail limited on MR examination. 3. Stress reaction/osseous contusion within the third metatarsal diaphysis and head with mild adjacent soft tissue edema. More mild stress reaction/contusion within the third proximal phalanx. No associated fracture line. 4. Moderate osteoarthritis at the second through fourth tarsometatarsal joints. 5. 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
== END 2023-05-07 07:17 | disposition home or self-care (01) ==
LOC: HO.MRI 07:16
PROVIDERS: PCP Nurse Practitioner Family; Visit Provider Nurse Practitioner Family
DX: M79.671 Pain in right foot (principal)
CPT/HCPCS: 73718

== ENCOUNTER 2023-11-30 07:58 | Outpatient (REF) | payer OTHER, SELFPAY ==
--- NOTE | ~2023-11-30 | MM_ITS ---
EXAMINATION: MM SCREENING DIGITAL BREAST TOMOSYNTHESIS, BILATERAL CLINICAL INFORMATION: Screening. Asymptomatic. COMPARISON: Mammography: This study is compared with prior exams dating back to 2019. TECHNIQUE: Digital breast tomosynthesis is performed in both the craniocaudal and mediolateral oblique views along with computer-aided detection (CAD). Synthesized 2D images are generated from the tomosynthesis. FINDINGS: The breasts are heterogeneously dense, which may obscure small masses (ACR BI-RADS breast composition Category c). There are no significant masses, abnormal calcifications, or other abnormalities. There is a biopsy tissue marker present in the superior portion of the right breast. MM/MM tomosynthesis screening BI IMPRESSION: No mammographic evidence of malignancy. ASSESSMENT: BI-RADS BI-RADS 2 - Benign Findings RECOMMENDATION: Routine annual mammography screening. 1 year F/U This examination should not preclude the clinical evaluation of a suspicious palpable abnormality. This patient's information was entered into a reminder system with a target due date for their next mammogram.
== END 2023-11-30 07:59 | disposition home or self-care (01) ==
LOC: HO.MAMMO 07:58
PROVIDERS: PCP Nurse Practitioner Family; Visit Provider Nurse Practitioner Family
DX: Z12.31 Encounter for screening mammogram for malignant neoplasm of breast (principal)
CPT/HCPCS: 77063; 77067

== ENCOUNTER → 2023-11-30 08:15 | Outpatient (BNV) | payer OTHER, SELFPAY | PROVIDERS: PCP Nurse Practitioner Family; Visit Provider Radiology Diagnostic Radiology | DX: Z12.31 Encounter for screening mammogram for malignant neoplasm of breast (principal) | CPT/HCPCS: 77063; 77067 ==

== ENCOUNTER 2024-01-18 09:47 | Outpatient (REF) | payer OTHER, SELFPAY ==
--- NOTE | ~2024-01-18 | MM_ITS ---
EXAMINATION: BONE DENSITOMETRY CLINICAL INDICATION: Asymptomatic menopausal state. COMPARISON: This is the patient's baseline examination. TECHNIQUE: Using a [employer] DXA System (software version: 13.1) manufactured by [employer], dual-energy x-ray absorptiometry was performed of the lumbar spine and left hip. The images are of good technical quality. Summary results are attached. FINDINGS: LEFT FEMUR, NECK: BMD 0.632 g/cm2, Z-score -1.6, T-score -2.9, osteoporosis. LEFT FEMUR, TOTAL: BMD 0.615 g/cm2, Z-score -2.1, T-score -3.1, osteoporosis. AP SPINE L1-L4: BMD 0.660 g/cm2, Z-score -3.0, T-score -4.3, osteoporosis. IDENTIFIED RISK FACTORS: Early menopause, secondary osteoporosis, bilateral oophorectomy, hysterectomy, history of fracture (adult). HISTORY OF FRACTURE: Wrist. MEDICATIONS: Multivitamin. MM/XR DEXA axial skeleton IMPRESSION: 1. DIAGNOSIS: Severe osteoporosis based on the lowest T-score value of -4.3 in the lumbar spine and history of fracture applying World Health Organization criteria. 2. 10-YEAR FRACTURE RISK PREDICTION, FRAX: According to the guidelines, FRAX calculation should only be performed on patients in the osteopenia bone density category. Therefore, FRAX was not performed on this patient. 3. Treatment Recommendations: NOF guidelines recommend consideration for treatment in postmenopausal women and men age 50 and older presenting with the following: -A hip or vertebral (clinical or morphometric) fracture. -T-score less than or equal to -2.5 at the femoral neck or spine after appropriate evaluation to exclude secondary causes. -Low bone mass at the hip or spine and a 10-year fracture probability by FRAX of greater than or equal to 3% for hip fracture or greater than or equal to 20% for major osteoporotic fracture based on the [place] adapted WHO algorithm. 4. Other Recommendations: All treatment decisions require clinical judgment and consideration of individual patient factors, including patient preferences, comorbidities, previous drug use, risk factors not captured in the FRAX model (e.g. frailty, falls, vitamin D deficiency, increased bone turnover, interval significant decline in bone density) and possible under or overestimation of fracture risk by FRAX. Additional medical evaluation for secondary cause of low bone mineral density may be appropriate. FUTURE SCAN RECOMMENDATION: People with diagnosed cases of osteoporosis or at high risk for fracture should have regular bone mineral density tests. For patients eligible for Medicare, routine testing is allowed once every 2 years. The testing frequency can be increased to one year for patients who have rapidly progressing disease, those who are receiving or discontinuing medical therapy to restore bone mass, or have additional risk factors.
== END 2024-01-18 09:48 | disposition home or self-care (01) ==
LOC: HO.MAMMO 09:47
PROVIDERS: PCP Nurse Practitioner Family; Visit Provider Nurse Practitioner Family
DX: Z13.820 Encounter for screening for osteoporosis (principal); Z78.0 Asymptomatic menopausal state
CPT/HCPCS: 77080

== ENCOUNTER 2024-02-05 14:20 | Outpatient (AMB) | payer OTHER, SELFPAY ==
--- NOTE | 2024-02-05 14:31 | MHC.OFFVIS ---
Vital Signs 02/05/24 14:33 Height 5 ft 4 in Weight 142 lb 13.753 oz BMI 24.5 BP 146/94 H Blood Pressure Location Lt brachial Position Sitting Pulse 68 Pulse Source Pulse Oximeter Intake Visit Reasons: osteoporosis-lvm Intake Note: New patient present today for Osteoporosis office visit. 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 First diagnosed in few wks ago . Not Received treatment in the past history of pathologic fracture of wrist in 2002 fell in parking lot and right foot 03/2023 not sure how happened but ONJ. Has several servings of dietary calcium per day in the form of cheese, yogurt . Not Takes Calcium supplement in divided doses. Not Takes IU of Vitamin D daily. Denies ever using PPI, anticoagulant, antiepileptic or glucocorticoid medication. 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 UTD on dental cleanings and sees dentist every 6 months. No planned upcoming dental work or extractions. DXA dated 01/18/24: FINDINGS: LEFT FEMUR, NECK: BMD 0.632 g/cm2, Z-score -1.6, T-score -2.9, osteoporosis. LEFT FEMUR, TOTAL: BMD 0.615 g/cm2, Z-score -2.1, T-score -3.1, osteoporosis. AP SPINE L1-L4: BMD 0.660 g/cm2, Z-score -3.0, T-score -4.3, osteoporosis. IDENTIFIED RISK FACTORS: Early menopause, secondary osteoporosis, bilateral oophorectomy, hysterectomy, history of fracture (adult). HISTORY OF FRACTURE: Wrist. MEDICATIONS: Multivitamin. MM/XR DEXA axial skeleton IMPRESSION: 1. DIAGNOSIS: Severe osteoporosis based on the lowest T-score value of -4.3 in the lumbar spine and history of fracture applying World [facility] Labs: [facility] Medical History Encounter for other plastic and reconstructive surgery following medical procedure or healed injury H/O idiopathic thrombocytopenic purpura HTN (hypertension) Squamous cell carcinoma in situ Surgical History H/O splenectomy H/O squamous cell carcinoma excision History of hysterectomy History of tubal ligation Hx of colonoscopy Social History Housing: House Patient Tobacco Use Status: Former Tobacco user Years Smoked: quit 15 years ago e-Cigarette/Vaping Use: Never Used Second Hand Smoke Exposure: No service: No Current occupational status: employed Current occupation: [employer] Current occupational exposures/hazards: Yes Cognitive needs: No Hearing needs: No Vision needs: No Physical Exam There are no Cushingoid features. Absence of blue sclera. Absence of kyphosis. Thyroid gland is of nl size and weighs 15 gms. There are no thyroid nodules palpated. Lungs CTA. Heart S1 S2 Reg R/R Abdominal exam benign. Muscle strength 5/5 . Examination of spine reveals absence of tenderness on palpation Assessment & Plan Assessment & Plan (1) Osteoporosis: Code(s): M81.0 - Age-related osteoporosis without current pathological fracture Category: Medical Plan: This is a 58-year-old white female with a history of severe osteoporosis with a history of stress fracture of the foot and wrist fracture. Rule out secondary causes Plan is to check a 24 hour urine for calcium and creatinine, SPEP, urine immunofixation, phosphorus level, 25 hydroxy vitamin-D. Will ensure 1200 mg of calcium and vitamin D3 2000 units per day. Assuming secondary workup is negative would strongly consider the use of an anabolic therapy initially proceeded by an anti resorptive therapy considering the severity of the osteoporosis Orders: Orders Calcium, 24 Hr Ur Today M81.0 - Age-related osteoporosis without current pathological fracture Immunofixation, Random Urine Today M81.0 - Age-related osteoporosis without current pathological fracture Phosphorus Today M81.0 - Age-related osteoporosis without current pathological fracture Vitamin D 25-OH Total Today M81.0 - Age-related osteoporosis without current pathological fracture Creatinine, 24 Hr Group Today M81.0 - Age-related osteoporosis without current pathological fracture Protein Electrophoresis, Serum Today M81.0 - Age-related osteoporosis without current pathological fracture Free T4 (Free Thyroxine) Today M81.0 - Age-related osteoporosis without current pathological fracture Thyroid Stimulating Hormone Today M81.0 - Age-related osteoporosis without current pathological fracture Coding Level of Care Code New Pt Level 4 (14996) Diagnoses Osteoporosis M81.0
[2024-02-05 14:33] VITALS: BP 146/94; PULSE 68; BMI 24.5
== END 2024-02-05 15:19 | disposition home or self-care (01) ==
PROVIDERS: PCP Nurse Practitioner Family; Visit Provider Internal Medicine Endocrinology, Diabetes & Metabolism
DX: M81.0 Age-related osteoporosis without current pathological fracture (principal)
CPT/HCPCS: 99204

== ENCOUNTER → 2024-02-05 14:20 | Outpatient (BNVA) | payer OTHER, SELFPAY | PROVIDERS: PCP Nurse Practitioner Family; Visit Provider Internal Medicine Endocrinology, Diabetes & Metabolism ==

== ENCOUNTER 2024-02-23 08:16 | Outpatient (REF) | payer OTHER, SELFPAY ==
[2024-02-23 11:09] LABS: MANUAL DIFF FLAG NO
[2024-02-23 11:18] LABS: Basophils Absolute Auto 0.1 X10*3/uL (0.0-0.2); Basophils Percent Auto 1.5 % (0-2); Eosinophils Absolute Auto 1.1 X10*3/uL (0.0-0.4); Eosinophils Percent Auto 12.9 % (0-4); Hematocrit 45.6 % (37.0-47.0); Hemoglobin 14.9 g/dl (12.0-16.0); Imm Gran Abs Auto 0.02 X10*3/uL (0.00-0.03); Imm Gran Pct Auto 0.2 % (0.0-0.4); Lymphocytes Absolute Auto 2.4 X10*3/uL (1.2-4.9); Lymphocytes Percent Auto 28.9 % (20-40); Mean Corpuscular HGB Conc 32.7 g/dl (31.0-35.0); Mean Corpuscular Hemoglobin 30.8 pg (27.0-33.0); Mean Corpuscular Volume 94.2 fL (80.0-98.0); Mean Platelet Volume 12.2 fL (9.4-12.3); Monocytes Absolute Auto 0.7 X10*3/uL (0.1-1.2); Monocytes Percent Auto 9.1 % (2-11); Neutrophils Absolute Auto 3.9 x10*3/uL (2.0-8.3); Neutrophils Percent Auto 47.4 % (45-73); Platelet Count 224 X10*3/uL (160-400); Red Blood Count 4.84 X10*6/uL (4.20-5.50); Red Cell Distribution Width 13.9 % (11.0-16.0); White Blood Count 8.2 X10*3/uL (4.8-10.8)
[2024-02-23 11:34] LABS: Alanine Aminotransferase 16 U/L (0-31); Anion Gap 12 (12-20); Aspartate Amino Transferase 20 U/L (5-31); Blood Urea Nitrogen 12 mg/dL (9-16); Calcium 9.8 mg/dL (8.4-10.2); Carbon Dioxide 30 mmol/L (22-29); Chloride 107 mmol/L (96-108); Cholesterol 187 mg/dL (<200); Estimated Glomerular Filt Rate > 60; Glucose Random 103 mg/dL (60-115); HDL Cholesterol 68 mg/dL (>40); LDL Cholesterol Calculated 104 mg/dL (<100); Potassium 4.4 mmol/L (3.3-5.1); Sodium 145 mmol/L (135-145); Triglycerides 77 mg/dL (<150)
[2024-02-23 11:36] LABS: Phosphorus 3.4 mg/dL (2.7-4.5)
[2024-02-23 11:43] LABS: Estimated Average Glucose 105 mg/dL; Hemoglobin A1c % 5.3 % (<6.0)
[2024-02-23 11:59] LABS: Free T4 (Free Thyroxine) 1.07 ng/dL (0.71-1.85); Thyroid Stimulating Hormone 3.26 uIU/mL (0.32-4.0); Vitamin D 25-OH Total 40.9 ng/mL (>30)
[2024-02-28 11:53] LABS: Prot Elec - Albumin 3.8 g/dL (3.8-4.8); Prot Elec - Alpha1 0.3 g/dL (0.2-0.3); Prot Elec - Alpha2 0.8 g/dL (0.5-0.9); Prot Elec - Beta 1 0.5 g/dL (0.4-0.6); Prot Elec - Beta 2 0.2 g/dL (0.2-0.5); Prot Elec - Gamma 0.6 g/dL (0.8-1.7); Prot Elec - Total Protein 6.3 g/dL (6.1-8.1)
== END 2024-02-23 08:17 | disposition home or self-care (01) ==
LOC: HO.HMGCLDS 08:16
PROVIDERS: PCP Internal Medicine; Referring Provider Internal Medicine Endocrinology, Diabetes & Metabolism; Visit Provider Internal Medicine
DX: M81.0 Age-related osteoporosis without current pathological fracture (principal); Z13.1 Encounter for screening for diabetes mellitus
CPT/HCPCS: 36415; 80048; 80061; 82306; 82550; 83036; 84100; 84165; 84439; 84443; 84450; 84460; 85025; 86335

== ENCOUNTER 2024-02-26 06:00 | Outpatient (REF) | payer OTHER, SELFPAY ==
[2024-02-26 11:06] LABS: Creatinine, mg/dL 56.37
[2024-02-26 13:53] LABS: Creatinine, 24Hr Urine 0.8 G/Day (1.0-2.0); Total Volume 24 Hour Urine 1475 mL
[2024-02-27 19:29] LABS: Calcium, 24 Hr Urine 134 mg/24 h; Calcium/Creatinine Ratio 163 mg/g creat (30-275); Creatinine 24Hr Urine 0.83 g/24 h (0.50-2.15)
== END 2024-02-26 06:01 | disposition home or self-care (01) ==
LOC: HO.HMGCLDS 06:00
PROVIDERS: PCP Internal Medicine; Visit Provider Internal Medicine Endocrinology, Diabetes & Metabolism
DX: M81.0 Age-related osteoporosis without current pathological fracture (principal)
CPT/HCPCS: 82340; 82570

== ENCOUNTER 2024-05-07 13:51 | Outpatient (AMB) | payer OTHER, SELFPAY ==
--- NOTE | 2024-05-07 13:55 | A.OFFVIS_ITS ---
Vital Signs 05/07/24 14:07 Height 5 ft 4.96 in Weight 143 lb 4.807 oz BMI 23.9 BP 140/86 H Blood Pressure Location Rt brachial Position Sitting Pulse 76 Pulse Source Pulse Oximeter Intake Visit Reasons: Osteoporosis-confirmed Intake Note: Patient present today for Osteoporosis follow up. Patient reports she is taking OTC Calcium and Vitamin D3. 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 First diagnosed in few wks ago . Not Received treatment in the past history of pathologic fracture of wrist in 2002 fell in parking lot and right foot 03/2023 not sure how happened but ONJ. Has several servings of dietary calcium per day in the form of cheese, yogurt . Not Takes Calcium supplement in divided doses. Not Takes IU of Vitamin D daily. Denies ever using PPI, anticoagulant, antiepileptic or glucocorticoid medication. 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 UTD on dental cleanings and sees dentist every 6 months. No planned upcoming dental work or extractions. DXA dated 01/18/24: FINDINGS: LEFT FEMUR, NECK: BMD 0.632 g/cm2, Z-score -1.6, T-score -2.9, osteoporosis. LEFT FEMUR, TOTAL: BMD 0.615 g/cm2, Z-score -2.1, T-score -3.1, osteoporosis. AP SPINE L1-L4: BMD 0.660 g/cm2, Z-score -3.0, T-score -4.3, osteoporosis. IDENTIFIED RISK FACTORS: Early menopause, secondary osteoporosis, bilateral oophorectomy, hysterectomy, history of fracture (adult). HISTORY OF FRACTURE: Wrist. MEDICATIONS: Multivitamin. MM/XR DEXA axial skeleton IMPRESSION: 1. DIAGNOSIS: Severe osteoporosis based on the lowest T-score value of -4.3 in the lumbar spine and history of fracture applying World Health Stress fx in right foot last yr and stress fx in left foot this yr Labs: [facility] Medical History Encounter for other plastic and reconstructive surgery following medical procedure or healed injury H/O idiopathic thrombocytopenic purpura HTN (hypertension) Squamous cell carcinoma in situ Surgical History Hx of colonoscopy H/O splenectomy H/O squamous cell carcinoma excision History of tubal ligation History of hysterectomy Social History Housing: House Patient Tobacco Use Status: Former Tobacco user Years Smoked: quit 15 years ago e-Cigarette/Vaping Use: Never Used Second Hand Smoke Exposure: No service: No Current occupational status: employed Current occupation: [employer] Current occupational exposures/hazards: Yes Cognitive needs: No Hearing needs: No Vision needs: No Physical Exam Vital Signs: Last Vital Signs Pulse 76 05/07/24 14:07 BP 140/86 H 05/07/24 14:07 BMI result Body Mass Index 23.9 Assessment & Plan Assessment & Plan (1) Osteoporosis: Code(s): M81.0 - Age-related osteoporosis without current pathological fracture Category: Medical Plan: This is a 58-year-old white female with a history of severe osteoporosis with a history of stress fracture of the foot and wrist fracture. Secondary causes have been ruled out Plan is to talk to the patient about anabolic therapy potentially with Evenity , Tymlos or Forteo . After discussion with the patient, we decided on going with Evenity. Medications: Discontinued prednisone Discontinued Reason: Doctor's Order 50 mg PO DAILY 6 tabs 0RF Coding Level of Care Code Est Pt Level 3 (84983) Diagnoses Osteoporosis M81.0
[2024-05-07 14:07] VITALS: BP 140/86; PULSE 76; BMI 23.9
== END 2024-05-07 14:46 | disposition home or self-care (01) ==
PROVIDERS: PCP Nurse Practitioner Family; Visit Provider Internal Medicine Endocrinology, Diabetes & Metabolism
DX: M81.0 Age-related osteoporosis without current pathological fracture (principal)
CPT/HCPCS: 99213

== ENCOUNTER → 2024-05-26 08:50 | Outpatient (BNVA) | payer OTHER, SELFPAY | PROVIDERS: PCP Nurse Practitioner Family | DX: Z71.89 Other specified counseling (principal) ==

== ENCOUNTER 2024-08-07 12:45 | Outpatient (AMB) | payer OTHER, SELFPAY ==
--- OUTSIDE RECORDS SUMMARY | 2024-08-07 12:53 | XMS_ITS | Patient Health Record ---
Author Organization [facility] Address [address] [place] [address] Support Name Relationship Address Phone ROBBY DAVISON Guarantor Unknown Reason For Referral No Information Medications Medication SIG (Take, Route, Fr equency, Duration) Notes Start Date End Date Status Nina 180 MG 1 ORAL daily for -3 [facility] 01/29/2012 Active Flonase 50MCG 2 Nasal daily for -3 [facility] 01/29/2012 Active Levoxyl 75MCG 1 ORAL daily for -3 [facility] 01/29/2012 Active ProAir HFA 90MCG 2 Inhalation four ti mes daily for -3 [facility] 01/29/2012 Active Problems Problem Type SNOMED Code ICD Code Onset Dates Problem Status W/U Status Risk Notes Problem Chronic lymphocytic thyroiditis (24245494) Chronic lymphocytic thyroiditis (245.2) Active confirmed Major Problem Hyperlipidemia (65367726) Other and unspecified hyperlipidemia (272.4) Active confirmed Major Problem Allergy (068672241) Allergy, unspecified not elsewhere classified (995.3) Active confirmed Diag Problem Gynecological examination normal (368532594561851) Routine gynecological examination (V72.31) Active confirmed Diag Plan Of Treatment No Information Insurance Providers Payer Name Payer Address Payer Phone Subscriber Number Group Number Insured Name Patient Relationship to Insured Coverage Start Date Coverage End Date [facility] INDEMNITY PLAN [address] [place], [place] [id number] ROBBY CORRALES Self - patient is the insured
--- NOTE | 2024-08-07 12:58 | MHC.OFFVIS ---
Vital Signs 08/07/24 13:02 Height 5 ft 4 in Weight 141 lb 8.588 oz BMI 24.3 BP 152/84 H Blood Pressure Location Rt brachial Position Sitting Pulse 79 Pulse Source Pulse Oximeter Pulse Oximetry (%) 98 Oxygen Delivery Method Room Air Intake Visit Reasons: Osteoporosis Intake Note: Patient present today for Osteoporosis follow up. Spool Fixer Required: No Allergies lisinopril Adverse Reaction (Mild, Verified 08/07/24 13:02) Cough HPI Comments Details: 59 YO Female is seen in consultation at the request of PCP for Osteoporosis. First diagnosed in few wks ago . Not Received treatment in the past history of pathologic fracture of wrist in 2002 fell in parking lot and right foot 03/2023 not sure how happened but ONJ. Has several servings of dietary calcium per day in the form of cheese, yogurt . Not Takes Calcium supplement in divided doses. Not Takes IU of Vitamin D daily. Denies ever using PPI, anticoagulant, antiepileptic or glucocorticoid medication. 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 UTD on dental cleanings and sees dentist every 6 months. No planned upcoming dental work or extractions. DXA dated 01/18/24: FINDINGS: LEFT FEMUR, NECK: BMD 0.632 g/cm2, Z-score -1.6, T-score -2.9, osteoporosis. LEFT FEMUR, TOTAL: BMD 0.615 g/cm2, Z-score -2.1, T-score -3.1, osteoporosis. AP SPINE L1-L4: BMD 0.660 g/cm2, Z-score -3.0, T-score -4.3, osteoporosis. IDENTIFIED RISK FACTORS: Early menopause, secondary osteoporosis, bilateral oophorectomy, hysterectomy, history of fracture (adult). HISTORY OF FRACTURE: Wrist. MEDICATIONS: Multivitamin. MM/XR DEXA axial skeleton IMPRESSION: 1. DIAGNOSIS: Severe osteoporosis based on the lowest T-score value of -4.3 in the lumbar spine and history of fracture applying [facility] Stress fx in right foot last yr and stress fx in left foot this yr Labs: Secondary workup negative. Patient was on Tymlos 80 mcg q.d. since 05/2024. Had nausea with injection and headache . No fracture since last visit [facility] Medical History Encounter for other plastic and reconstructive surgery following medical procedure or healed injury H/O idiopathic thrombocytopenic purpura HTN (hypertension) Squamous cell carcinoma in situ Surgical History Hx of colonoscopy H/O splenectomy H/O squamous cell carcinoma excision History of tubal ligation History of hysterectomy Social History Housing: House Patient Tobacco Use Status: Former Tobacco user Years Smoked: quit 15 years ago e-Cigarette/Vaping Use: Never Used Second Hand Smoke Exposure: No service: No Current occupational status: employed Current occupation: [employer] Current occupational exposures/hazards: Yes Cognitive needs: No Hearing needs: No Vision needs: No Physical Exam Vital Signs: Last Vital Signs Pulse 79 08/07/24 13:02 BP 152/84 H 08/07/24 13:02 Pulse Ox 98 08/07/24 13:02 Oxygen Delivery Method Room Air 08/07/24 13:02 BMI result Body Mass Index 24.3 Assessment & Plan Assessment & Plan (1) Osteoporosis: Code(s): M81.0 - Age-related osteoporosis without current pathological fracture Category: Medical Plan: This is a 58-year-old white female with a history of severe osteoporosis with a history of stress fracture of the foot and wrist fracture. Secondary causes have been ruled out. Tried Tymlos for 2 months but could not tolerate Plan is to attempt to switch the patient to Evenity which would have a different mechanism of action than Forteo and may be better tolerated. Would really like to try another anabolic agent considering the very low bone density and high risk for fracture Coding Level of Care Code Est Pt Level 3 (21244) Diagnoses Osteoporosis M81.0
[2024-08-07 13:02] VITALS: BP 152/84; PULSE 79; O2SAT 98; BMI 24.3
== END 2024-08-07 13:43 | disposition home or self-care (01) ==
PROVIDERS: PCP Nurse Practitioner Family; Visit Provider Internal Medicine Endocrinology, Diabetes & Metabolism
DX: M81.0 Age-related osteoporosis without current pathological fracture (principal)
CPT/HCPCS: 99213

== ENCOUNTER 2024-09-11 08:50 | Outpatient (AMB) | payer OTHER, SELFPAY ==
--- OUTSIDE RECORDS SUMMARY | 2024-09-11 09:15 | XMS_ITS | Patient Health Record ---
Author Organization [facility] Address [address] [place] [address] Support Name Relationship Address Phone ROBBY DAVISON Guarantor Unknown Reason For Referral No Information Medications Medication SIG (Take, Route, Fr equency, Duration) Notes Start Date End Date Status Nina 180 MG 1 ORAL daily for -3 [facility] 01/29/2012 Active Flonase 50MCG 2 Nasal daily for -3 [facility] 01/29/2012 Active Levoxyl 75MCG 1 ORAL daily for -3 [facility] 01/29/2012 Active ProAir HFA 90MCG 2 Inhalation four ti mes daily for -3 [facility] 01/29/2012 Active Problems Problem Type SNOMED Code ICD Code Onset Dates Problem Status W/U Status Risk Notes Problem Chronic lymphocytic thyroiditis (81082339) Chronic lymphocytic thyroiditis (245.2) Active confirmed Major Problem Hyperlipidemia (38437445) Other and unspecified hyperlipidemia (272.4) Active confirmed Major Problem Allergy (606866793) Allergy, unspecified not elsewhere classified (995.3) Active confirmed Diag Problem Gynecological examination normal (700458603093206) Routine gynecological examination (V72.31) Active confirmed Diag Plan Of Treatment No Information Insurance Providers Payer Name Payer Address Payer Phone Subscriber Number Group Number Insured Name Patient Relationship to Insured Coverage Start Date Coverage End Date [facility] INDEMNITY PLAN [address] [place], [place] [id number] ROBBY CORRALES Self - patient is the insured
--- NOTE | 2024-09-11 09:32 | AM.OFFVISNUR ---
Intake Visit Reasons: Evenity #1 Allergies lisinopril Adverse Reaction (Mild, Verified 08/07/24 13:02) Cough Office Meds romosozumab-aqqg 210 mg/2.34 mL(105 mg/1.17 mL x2)subcutaneous syringe Performing Provider: Robin Lima MD Performing Location: [facility] [place] [place] Endocrinology Administered by: Sue Ramsay RN on 09/11/24 09:32 Dose Route Admin Location Dispensed Lot Number Expiration Date [facility] Video Systems Engineer 210 mg subcut Bilateral upper arms 2.34 mL [id number] 09/22/26 38134-665-89 [facility] Comments: Consent form signed by patient. Pt advised to continue taking calcium and Vit D supplementation throughout evenity injections. Patient advised to alert her dentist she is on this medication. Patient aware to watch for site reactions at injection site such as redness, warmth or swelling. Pt aware to call the office if any of these were to occur or other side effects such as headache or joint pain. Pt observed for 15 minutes following injection without any adverse reactions. Pt scheduled for the next three injections accordingly. No further questions or concerns at this time. Assessment & Plan Assessment & Plan Orders: Orders AMB Romosozumab Injection Patient Supplied Today M81.0 - Age-related osteoporosis without current pathological fracture Medications: New romosozumab-aqqg 210 mg (2.34 mL) subcut ONCE 2.34 mL 0RF M81.0 - Age-related osteoporosis without current pathological fracture Coding
== END 2024-09-11 09:32 | disposition home or self-care (01) ==
LOC: HO.ENCR 08:50
PROVIDERS: PCP Nurse Practitioner Family; Visit Provider Internal Medicine Endocrinology, Diabetes & Metabolism
DX: M81.0 Age-related osteoporosis without current pathological fracture (principal)

== ENCOUNTER → 2024-09-11 08:50 | Outpatient (BNVA) | payer OTHER, SELFPAY | PROVIDERS: PCP Nurse Practitioner Family; Visit Provider Internal Medicine Endocrinology, Diabetes & Metabolism | DX: M81.0 Age-related osteoporosis without current pathological fracture (principal) | CPT/HCPCS: 96372; J3111 ==

== ENCOUNTER 2024-10-09 08:48 | Outpatient (AMB) | payer OTHER, SELFPAY ==
--- NOTE | 2024-10-09 09:09 | AM.OFFVISNUR ---
Intake Visit Reasons: Evenity #2 Allergies lisinopril Adverse Reaction (Mild, Verified 08/07/24 13:02) Cough Office Meds romosozumab-aqqg 210 mg/2.34 mL(105 mg/1.17 mL x2)subcutaneous syringe Performing Provider: Robin Lima MD Performing Location: [facility] [place] Endocrinology Administered by: Sakshi Callahan RN on 10/09/24 09:09 Dose Route Admin Location Dispensed Lot Number Expiration Date [facility] Photographer Helper 210 mg subcut bilateral upper arms 2.34 mL [id number] 10/22/26 07696-048-49 AM[facility] Assessment & Plan Assessment & Plan Orders: Orders AMB Romosozumab Injection Patient Supplied Today M81.0 - Age-related osteoporosis without current pathological fracture Medications: New romosozumab-aqqg 210 mg (2.34 mL) subcut ONCE 2.34 mL 0RF M81.0 - Age-related osteoporosis without current pathological fracture Coding
--- OUTSIDE RECORDS SUMMARY | 2024-10-09 09:30 | XMS_ITS | Patient Health Record ---
Author Organization [facility] Address [address] [place] [address] Support Name Relationship Address Phone ROBBY DAVISON Guarantor Unknown [phone] Reason For Referral No Information Medications Medication SIG (Take, Route, Fr equency, Duration) Notes Start Date End Date Status Nina 180 MG 1 ORAL daily for -3 [facility] 01/29/2012 Active Flonase 50MCG 2 Nasal daily for -3 [facility] 01/29/2012 Active Levoxyl 75MCG 1 ORAL daily for -3 [facility] 01/29/2012 Active ProAir HFA 90MCG 2 Inhalation four ti mes daily for -3 [facility] 01/29/2012 Active Problems Problem Type SNOMED Code ICD Code Onset Dates Problem Status W/U Status Risk Notes Problem Chronic lymphocytic thyroiditis (98088691) Chronic lymphocytic thyroiditis (245.2) Active confirmed Major Problem Hyperlipidemia (97391961) Other and unspecified hyperlipidemia (272.4) Active confirmed Major Problem Allergy (366663258) Allergy, unspecified not elsewhere classified (995.3) Active confirmed Diag Problem Gynecological examination normal (957327764167864) Routine gynecological examination (V72.31) Active confirmed Diag Plan Of Treatment No Information Insurance Providers Payer Name Payer Address Payer Phone Subscriber Number Group Number Insured Name Patient Relationship to Insured Coverage Start Date Coverage End Date [facility] INDEMNITY PLAN [address] [place], [place] [id number] ROBBY CORRALES Self - patient is the insured
== END 2024-10-09 09:11 | disposition home or self-care (01) ==
LOC: HO.ENCR 08:49
PROVIDERS: PCP Nurse Practitioner Family; Visit Provider Internal Medicine Endocrinology, Diabetes & Metabolism
DX: M81.0 Age-related osteoporosis without current pathological fracture (principal)

== ENCOUNTER → 2024-10-09 08:48 | Outpatient (BNVA) | payer OTHER, SELFPAY | PROVIDERS: PCP Nurse Practitioner Family; Visit Provider Internal Medicine Endocrinology, Diabetes & Metabolism | DX: M81.0 Age-related osteoporosis without current pathological fracture (principal) | CPT/HCPCS: 96372; J3111 ==

== ENCOUNTER 2024-11-06 13:02 | Outpatient (AMB) | payer OTHER, SELFPAY ==
--- NOTE | 2024-11-06 13:07 | A.OFFVIS_ITS ---
Vital Signs 11/06/24 13:10 Height 5 ft 5.67 in Weight 140 lb 6.951 oz BMI 22.9 BP 152/78 H Blood Pressure Location Rt brachial Position Sitting Pulse 56 Pulse Source Pulse Oximeter Pulse Oximetry (%) 97 Oxygen Delivery Method Room Air Intake Visit Reasons: f/u osteoporosis/evenity #3 Intake Note: Patient present today for Osteoporosis follow up and Evenity Injection #3. Plush Weaver Required: No Accompanied by: Self / Same As Patient Allergies lisinopril Adverse Reaction (Mild, Verified 11/06/24 13:11) Cough HPI Comments Details: 59 YO Female is seen in consultation at the request of PCP for Osteoporosis. First diagnosed in few wks ago . Not Received treatment in the past history of pathologic fracture of wrist in 2002 fell in parking lot and right foot 03/2023 not sure how happened but ONJ. Has several servings of dietary calcium per day in the form of cheese, yogurt . Not Takes Calcium supplement in divided doses. Not Takes IU of Vitamin D daily. Denies ever using PPI, anticoagulant, antiepileptic or glucocorticoid medication. 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 UTD on dental cleanings and sees dentist every 6 months. No planned upcoming dental work or extractions. DXA dated 01/18/24: FINDINGS: LEFT FEMUR, NECK: BMD 0.632 g/cm2, Z-score -1.6, T-score -2.9, osteoporosis. LEFT FEMUR, TOTAL: BMD 0.615 g/cm2, Z-score -2.1, T-score -3.1, osteoporosis. AP SPINE L1-L4: BMD 0.660 g/cm2, Z-score -3.0, T-score -4.3, osteoporosis. IDENTIFIED RISK FACTORS: Early menopause, secondary osteoporosis, bilateral oophorectomy, hysterectomy, history of fracture (adult). HISTORY OF FRACTURE: Wrist. MEDICATIONS: Multivitamin. MM/XR DEXA axial skeleton IMPRESSION: 1. DIAGNOSIS: Severe osteoporosis based on the lowest T-score value of -4.3 in the lumbar spine and history of fracture applying [facility] Stress fx in right foot last yr and stress fx in left foot this yr Labs: Secondary workup negative. Patient was on Tymlos 80 mcg q.d. since 05/2024. Had nausea with injection and headache . No fracture since last visit. Currently on Evenity injection 3.. Tolerating well without any problems. No fracture since last visit except toe PFSH Medical History Encounter for other plastic and reconstructive surgery following medical procedure or healed injury H/O idiopathic thrombocytopenic purpura HTN (hypertension) Squamous cell carcinoma in situ Surgical History Hx of colonoscopy H/O splenectomy H/O squamous cell carcinoma excision History of tubal ligation History of hysterectomy Social History Housing: House Patient Tobacco Use Status: Former Tobacco user Years Smoked: quit 15 years ago e-Cigarette/Vaping Use: Never Used Second Hand Smoke Exposure: No service: No Current occupational status: employed Current occupation: [employer] Current occupational exposures/hazards: Yes Cognitive needs: No Hearing needs: No Vision needs: No Assessment & Plan Assessment & Plan (1) Osteoporosis: Code(s): M81.0 - Age-related osteoporosis without current pathological fracture Category: Medical Plan: This is a 59-year-old white female with a history of severe osteoporosis with a history of stress fracture of the foot and wrist fracture. Secondary causes have been ruled out. Tried Tymlos for 2 months but could not tolerate. Plan is to continue the Evenity for full years time and then will transition to either Prolia or alendronate Coding Level of Care Code Est Pt Level 3 (36928) Diagnoses Osteoporosis M81.0
[2024-11-06 13:10] VITALS: BP 152/78; PULSE 56; O2SAT 97; BMI 22.9
--- OUTSIDE RECORDS SUMMARY | 2024-11-06 13:37 | XMS_ITS | Patient Health Record ---
Author Organization [facility] Address [address] [place] [address] Support Name Relationship Address Phone ROBBY DAVISON Guarantor Unknown Reason For Referral No Information Medications Medication SIG (Take, Route, Fr equency, Duration) Notes Start Date End Date Status Nina 180 MG 1 ORAL daily for -3 [facility] 01/29/2012 Active Flonase 50MCG 2 Nasal daily for -3 [facility] 01/29/2012 Active Levoxyl 75MCG 1 ORAL daily for -3 [facility] 01/29/2012 Active ProAir HFA 90MCG 2 Inhalation four ti mes daily for -3 [facility] 01/29/2012 Active Problems Problem Type SNOMED Code ICD Code Onset Dates Problem Status W/U Status Risk Notes Problem Chronic lymphocytic thyroiditis (03064644) Chronic lymphocytic thyroiditis (245.2) Active confirmed Major Problem Hyperlipidemia (93288191) Other and unspecified hyperlipidemia (272.4) Active confirmed Major Problem Allergy (548576434) Allergy, unspecified not elsewhere classified (995.3) Active confirmed Diag Problem Gynecological examination normal (161416421513342) Routine gynecological examination (V72.31) Active confirmed Diag Plan Of Treatment No Information Insurance Providers Payer Name Payer Address Payer Phone Subscriber Number Group Number Insured Name Patient Relationship to Insured Coverage Start Date Coverage End Date [facility] INDEMNITY PLAN [address] [place], [place] [id number] ROBBY CORRALES Self - patient is the insured
== END 2024-11-06 14:02 | disposition home or self-care (01) ==
LOC: HO.ENCR 13:03
PROVIDERS: PCP Nurse Practitioner Family; Visit Provider Internal Medicine Endocrinology, Diabetes & Metabolism
DX: M81.0 Age-related osteoporosis without current pathological fracture (principal)
CPT/HCPCS: 99213

== ENCOUNTER → 2024-11-06 13:02 | Outpatient (BNVA) | payer OTHER, SELFPAY | PROVIDERS: PCP Nurse Practitioner Family; Visit Provider Internal Medicine Endocrinology, Diabetes & Metabolism | DX: M81.0 Age-related osteoporosis without current pathological fracture (principal) | CPT/HCPCS: 96372; J3111 ==

== ENCOUNTER 2024-12-04 14:21 | Outpatient (AMB) | payer OTHER, SELFPAY ==
--- NOTE | 2024-12-04 15:02 | AM.OFFVISNUR ---
Intake Visit Reasons: Evenity #4 Allergies lisinopril Adverse Reaction (Mild, Verified 11/06/24 13:11) Cough Office Meds romosozumab-aqqg 210 mg/2.34 mL(105 mg/1.17 mL x2)subcutaneous syringe Performing Provider: Robin Lima MD Performing Location: [facility] [place] Endocrinology Administered by: Sakshi Callahan RN on 12/04/24 15:02 Dose Route Admin Location Dispensed Lot Number Expiration Date [facility] Keno Attendant 210 mg subcut bilateral upper arms 2.34 mL [id number] 03/24/27 72904-268-15 AM[facility] Assessment & Plan Assessment & Plan Orders: Orders AMB Romosozumab Injection Patient Supplied Today M81.0 - Age-related osteoporosis without current pathological fracture Medications: New romosozumab-aqqg 210 mg (2.34 mL) subcut ONCE 2.34 mL 0RF M81.0 - Age-related osteoporosis without current pathological fracture Coding
--- OUTSIDE RECORDS SUMMARY | 2024-12-04 16:55 | XMS_ITS | Patient Health Record ---
Author Organization [facility] Address [address] [place] [address] Support Name Relationship Address Phone ROBBY DAVISON Guarantor Unknown Reason For Referral No Information Medications Medication SIG (Take, Route, Fr equency, Duration) Notes Start Date End Date Status Nina 180 MG 1 ORAL daily for -3 [facility] 01/29/2012 Active Flonase 50MCG 2 Nasal daily for -3 [facility] 01/29/2012 Active Levoxyl 75MCG 1 ORAL daily for -3 [facility] 01/29/2012 Active ProAir HFA 90MCG 2 Inhalation four ti mes daily for -3 [facility] 01/29/2012 Active Problems Problem Type SNOMED Code ICD Code Onset Dates Problem Status W/U Status Risk Notes Problem Chronic lymphocytic thyroiditis (53895563) Chronic lymphocytic thyroiditis (245.2) Active confirmed Major Problem Hyperlipidemia (10224475) Other and unspecified hyperlipidemia (272.4) Active confirmed Major Problem Allergy (788325056) Allergy, unspecified not elsewhere classified (995.3) Active confirmed Diag Problem Gynecological examination normal (821777869871561) Routine gynecological examination (V72.31) Active confirmed Diag Plan Of Treatment No Information Insurance Providers Payer Name Payer Address Payer Phone Subscriber Number Group Number Insured Name Patient Relationship to Insured Coverage Start Date Coverage End Date [facility] INDEMNITY PLAN [address] [place], [place] [id number] ROBBY CORRALES Self - patient is the insured
== END 2024-12-04 15:00 | disposition home or self-care (01) ==
LOC: HO.ENCR 14:22
PROVIDERS: PCP Nurse Practitioner Family; Visit Provider Internal Medicine Endocrinology, Diabetes & Metabolism
DX: M81.0 Age-related osteoporosis without current pathological fracture (principal)

== ENCOUNTER → 2024-12-04 14:21 | Outpatient (BNVA) | payer OTHER, SELFPAY | PROVIDERS: PCP Nurse Practitioner Family; Visit Provider Internal Medicine Endocrinology, Diabetes & Metabolism | DX: M81.0 Age-related osteoporosis without current pathological fracture (principal) | CPT/HCPCS: 96372; J3111 ==

== ENCOUNTER 2024-12-22 14:58 | Outpatient (REF) | payer OTHER, SELFPAY ==
--- OUTSIDE RECORDS SUMMARY | 2024-12-22 15:26 | XMS_ITS | Patient Health Record ---
Author Organization [facility] Address [address] [place] [address] Support Name Relationship Address Phone ROBBY DAVISON Guarantor Unknown Reason For Referral No Information Medications Medication SIG (Take, Route, Fr equency, Duration) Notes Start Date End Date Status Nina 180 MG 1 ORAL daily; Duration: -3 [facility] 01/29/20 12 Active Flonase 50MCG 2 Nasal daily; Duration: -3 [facility] 01/29/20 12 Active Levoxyl 75MCG 1 ORAL daily; Duration: -3 [facility] 2 Active ProAir HFA 90MCG 2 Inhalation four ti mes daily; Duration: -3 [facility] 01/29/2012 Active Problems Problem Type SNOMED Code ICD Code Onset Dates Problem Status W/U Status Risk Notes Problem Chronic lymphocytic thyroiditis (84689665) Chronic lymphocytic thyroiditis (245.2) Active confirmed Major Problem Hyperlipidemia (87121473) Other and unspecified hyperlipidemia (272.4) Active confirmed Major Problem Allergy (689220976) Allergy, unspecified not elsewhere classified (995.3) Active confirmed Diag Problem Gynecological examination normal (221824080155190) Routine gynecological examination (V72.31) Active confirmed Diag Plan Of Treatment No Information Insurance Providers Payer Name Payer Address Payer Phone Subscriber Number Group Number Insured Name Patient Relationship to Insured Coverage Start Date Coverage End Date [facility] INDEMN[facility] PLAN [address] [place], [place] [id number] ROBBY CORRALES Self - patient is the insured
== END 2024-12-22 14:59 | disposition home or self-care (01) ==
LOC: HO.MAMMO 14:58
PROVIDERS: PCP Internal Medicine; Visit Provider Internal Medicine
DX: Z12.31 Encounter for screening mammogram for malignant neoplasm of breast (principal)
CPT/HCPCS: 77063; 77067

== ENCOUNTER → 2024-12-22 15:30 | Outpatient (BNV) | payer OTHER, SELFPAY | PROVIDERS: PCP Internal Medicine; Visit Provider Internal Medicine | DX: Z12.31 Encounter for screening mammogram for malignant neoplasm of breast (principal) | CPT/HCPCS: 77063; 77067 ==

== ENCOUNTER 2025-01-01 14:41 | Outpatient (AMB) | payer OTHER, SELFPAY ==
--- NOTE | 2025-01-01 14:59 | AM.OFFVISNUR ---
Intake Visit Reasons: Evenity #5 Allergies lisinopril Adverse Reaction (Mild, Verified 11/06/24 13:11) Cough Office Meds romosozumab-aqqg 210 mg/2.34 mL(105 mg/1.17 mL x2)subcutaneous syringe Performing Provider: Robin Lima MD Performing Location: [facility] [place] Endocrinology Administered by: Sakshi Callahan RN on 01/01/25 14:59 Dose Route Admin Location Dispensed Lot Number Expiration Date [facility] Trolley Wire Installer 210 mg subcut bilateral upper arms 2.34 mL [id number] 04/24/27 65933-217-75 [facility] Total Dispensed Waste 2.34 mL 0 % Comments: No adverse reactions reported from previous injection. Pt tolerated injection well. Pt scheduled in 4 weeks for next injection. No further questions at this time. Assessment & Plan Assessment & Plan Orders: Orders AMB Romosozumab Injection Patient Supplied Today M81.0 - Age-related osteoporosis without current pathological fracture Coding
== END 2025-01-01 14:57 | disposition home or self-care (01) ==
LOC: HO.ENCR 14:41
PROVIDERS: PCP Nurse Practitioner Family; Visit Provider Internal Medicine Endocrinology, Diabetes & Metabolism
DX: M81.0 Age-related osteoporosis without current pathological fracture (principal)

== ENCOUNTER → 2025-01-01 14:41 | Outpatient (BNVA) | payer OTHER, SELFPAY | PROVIDERS: PCP Nurse Practitioner Family; Visit Provider Internal Medicine Endocrinology, Diabetes & Metabolism | DX: M81.0 Age-related osteoporosis without current pathological fracture (principal) | CPT/HCPCS: 96372; J3111 ==

== ENCOUNTER 2025-01-29 14:30 | Outpatient (AMB) | payer OTHER, SELFPAY ==
--- OUTSIDE RECORDS SUMMARY | 2025-01-29 14:33 | XMS_ITS | Patient Health Record ---
Author Organization [facility] Address [address] [place] [address] Support Name Relationship Address Phone ROBBY DAVISON Guarantor Unknown [phone] Reason For Referral No Information Medications Medication [...] Status Risk Notes Problem Chronic lymphocytic thyroiditis (02502608) Chronic lymphocytic thyroiditis (245.2) Active confirmed Major Problem Hyperlipidemia (13552243) Other and unspecified hyperlipidemia (272.4) Active confirmed Major Problem Allergy (956939265) Allergy, unspecified not elsewhere classified (995.3) Active confirmed Diag Problem Gynecological examination normal (004101612798192) Routine gynecological examination (V72.31) Active confirmed Diag Plan Of Treatment No Information Insurance Providers Payer Name Payer Address Payer Phone Subscriber Number Group Number Insured Name Patient Relationship to Insured Coverage Start Date Coverage End Date [facility] INDEMNITY PLAN [address] [place], [place] [id number] ROBBY CORRALES Self - patient is the insured
--- OUTSIDE RECORDS SUMMARY | 2025-01-29 14:33 | XMS_ITS | Clinical Summary ---
Author Organization [facility] Address [address] [facility] [address] [place] [address] Phone Care Team Providers Care Log Deck Tender Name Role Phone Blu Celis NP Primary Care Provider + Medications No known medications Active Problems No known active problems Social History Tobacco Use Types Packs/Day Years Used Date Smoking Tobacco: Never Assessed Education Answer Date Recorded Are you interested in more education? Not on rabia e 05/11/2023 Are you concerned about learning? Not on file 05/11/2023 No 05/11/2023 No 05/11/2023 Digital Access Answer Date Recorded No 05/11/2023 No 05/11/2023 Reliable internet access at home? Not on file 05/11/2023 Device with a working camera? Not on file Comments Unknown Sex and Gender Information Value Date Recorded Sex Assigned at Female 05/11/2023 11:37 AM EST Legal Sex Female 11:30 AM EST Gender Identity Female 05/11/2023 11:37 AM EST Sexual Orientation Straight 05/11/2023 11 :37 AM EST Plan of Treatment Health Maintenance Due Date Last Done Comments Adult Td,Tdap Booster 1963 LIPID PANEL 1963 DEPRESSION SCREENING 1975 SMOKING Hx and SMOKELESS TOB ACCO SCREENING 1976 HEPATITIS C SCREENING 1981 HIV ONE-TIME SCREENING (18-6 5 YEARS) 1981 PAP SMEAR 1984 MAMMOGRAM 2003 COLOGUARD 2008 COLONOSCOPY 2008 COLORECTAL CANCER SCREENING 2008 FIT TEST 2008 FOBT 2008 SIGMOIDOSCOPY 2008 VIRTUAL COLONOSCOPY 2008 PNEUMOCOCCAL VACCINES (50+ y ears) (1 of 1 - PCV) 2013 ZOSTER VACCINES (1 of 2) 2013 COVID-19 VACCINE (1 - 2023-2 5 season) 2024 RSV VACCINE (1 - 1-dose 75+ series) 2038 HEPATITIS A VACCINES Aged Out No long er eligible based on patient's age to complete this topic HIB VACCINES Aged Out No longer eligi ble based on patient's age to complete this topic MENINGOCOCCAL VACCINES (ACWY) Aged Out No longer eligible based on patient's age to complete this topic MENINGOCOCCAL VACCINES (B) Aged Out N o longer eligible based on patient's age to complete this topic Medical Devices Not on file Insurance [employer] [facility] AHS Pharm[employer] CHOICE [employer] [facility] [place] [address] [place] [address] [place] [address] [place] [address] CHOICE [facility] COMM[facility]ITY CHOICE Care Teams Log Deck Tender Relationship Specialty Start Date End Date Blu Celis NP [address] [place] [address] [place] [id number] [email or web address] PCP - General Nurse Practitioner 05/11/23 Additional Source Comments The information contained in this document represents components of the legal health record. It is not the complete legal health record.[facility]
--- NOTE | 2025-01-29 15:02 | AM.OFFVISNUR ---
Intake Visit Reasons: Evenity #6 Allergies lisinopril Adverse Reaction (Mild, Verified 11/06/24 13:11) Cough Office Meds romosozumab-aqqg 210 mg/2.34 mL(105 mg/1.17 mL x2)subcutaneous syringe Performing Provider: Robin Lima MD Performing Location: [facility] Endocrinology Administered by: Sakshi Callahan RN on 01/29/25 15:02 Dose Route Admin Location Dispensed Lot Number Expiration Date [facility] Industrial Technician 210 mg subcut bilateral upper arms 2.34 mL [id number] 05/24/27 20321-903-79 AMGEN Total Dispensed Waste 2.34 mL 0 % Comments: No adverse reactions reported from previous injection. Pt tolerated injection well. Pt scheduled in 4 weeks for next injection. No further questions at this time. Assessment & Plan Assessment & Plan Orders: Orders AMB Romosozumab Injection Patient Supplied Today M81.0 - Age-related osteoporosis without current pathological fracture Coding
== END 2025-01-29 14:59 | disposition home or self-care (01) ==
LOC: HO.ENCR 14:31
PROVIDERS: PCP Nurse Practitioner Family; Visit Provider Internal Medicine Endocrinology, Diabetes & Metabolism
DX: M81.0 Age-related osteoporosis without current pathological fracture (principal)

== ENCOUNTER → 2025-01-29 14:30 | Outpatient (BNVA) | payer OTHER, SELFPAY | PROVIDERS: PCP Nurse Practitioner Family; Visit Provider Internal Medicine Endocrinology, Diabetes & Metabolism | DX: M81.0 Age-related osteoporosis without current pathological fracture (principal) | CPT/HCPCS: 96372; J3111 ==

== ENCOUNTER 2025-02-26 14:25 | Outpatient (AMB) | payer OTHER, SELFPAY ==
--- NOTE | 2025-02-26 15:01 | AM.OFFVISNUR ---
Intake Visit Reasons: Evenity #7 Allergies lisinopril Adverse Reaction (Mild, Verified 11/06/24 13:11) Cough Office Meds romosozumab-aqqg 210 mg/2.34 mL(105 mg/1.17 mL x2)subcutaneous syringe Performing Provider: Robin Lima MD Performing Location: [facility] Endocrinology Administered by: Sakshi Callahan RN on 02/26/25 15:01 Dose Route Admin Location Dispensed Lot Number Expiration Date [facility] Fabric Cutter 210 mg subcut bilateral upper 2.34 mL [id number] 05/24/27 63999-587-93 AMGEN Total Dispensed Waste 2.34 mL 0 % Comments: No adverse reactions reported from previous injection. Pt tolerated injection well. Pt scheduled in 4 weeks for next appt. No further questions at this time. Assessment & Plan Assessment & Plan Orders: Orders AMB Romosozumab Injection Patient Supplied Today M81.0 - Age-related osteoporosis without current pathological fracture Coding
--- OUTSIDE RECORDS SUMMARY | 2025-02-26 15:46 | XMS_ITS | Clinical Summary ---
Author Organization [facility] Address [address] [facility] [address] [place] [address] Phone Care Team Providers Care Finance Effectiveness Manager Name Role Phone Blu Celis NP Primary [...] topic Medical Devices Not on file Insurance [employer] [facility] Work For Pie CHOICE [employer] [facility] [place] [address] [address] CHOICE [facility] [place] [address] [facility] COMMUNITY CHOICE Care Teams Finance Effectiveness Manager Relationship Specialty Start Date End Date Blu Celis NP [address] [place] [id number] PCP - General Nurse Practitioner 05/11/23 Additional Source Comments The information contained in this document represents components of the legal health record. It is not the complete legal health record.[facility]
--- OUTSIDE RECORDS SUMMARY | 2025-02-26 15:46 | XMS_ITS | Patient Health Record ---
Author Organization [employer] [facility] Address [address] [place] [address] Support Name Relationship Address Phone ROBBY DAVISON Guarantor Unknown [phone] Reason For Referral No Information Medications Medication [...] Status Risk Notes Problem Chronic lymphocytic thyroiditis (49454565) Chronic lymphocytic thyroiditis (245.2) Active confirmed Major Problem Hyperlipidemia (35772137) Other and unspecified hyperlipidemia (272.4) Active confirmed Major Problem Allergy (379089976) Allergy, unspecified not elsewhere classified (995.3) Active confirmed Diag Problem Gynecological examination normal (488518600370942) Routine gynecological examination (V72.31) Active confirmed Diag Plan Of Treatment No Information Insurance Providers Payer Name Payer Address Payer Phone Subscriber Number Group Number Insured Name Patient Relationship to Insured Coverage Start Date Coverage End Date [facility] STATE INDEMNITY PLAN [address] [place], [place] [id number] ROBBY CORRALES Self - patient is the insured
== END 2025-02-26 15:00 | disposition home or self-care (01) ==
LOC: HO.ENCR 14:26
PROVIDERS: PCP Nurse Practitioner Family; Visit Provider Internal Medicine Endocrinology, Diabetes & Metabolism
DX: M81.0 Age-related osteoporosis without current pathological fracture (principal)

== ENCOUNTER → 2025-02-26 14:25 | Outpatient (BNVA) | payer OTHER, SELFPAY | PROVIDERS: PCP Nurse Practitioner Family; Visit Provider Internal Medicine Endocrinology, Diabetes & Metabolism | DX: M81.0 Age-related osteoporosis without current pathological fracture (principal) | CPT/HCPCS: 96372; J3111 ==

== ENCOUNTER 2025-03-13 12:34 | Outpatient (AMB) | payer OTHER, SELFPAY ==
--- OUTSIDE RECORDS SUMMARY | 2025-03-13 12:36 | XMS_ITS | Clinical Summary ---
Author Organization [facility] Address [address] [facility] [address] [place] [address] Phone Care Team Providers Care Blend Technician Name Role Phone Blu Celis NP Primary [...] 2013 ZOSTER VACCINES (1 of 2) 2013 INFLUENZA VACCINE (#1) 2025 COVID-19 VACCINE (1 - 2023-2 5 season) 2025 RSV VACCINE (1 - 1-dose 75+ series) [...] topic Medical Devices Not on file Insurance [employer] [facility] [employer] CHOICE [employer] [facility] [place] [address] [facility] COMMUNITY CHOICE Care Teams Blend Technician Relationship Specialty Start Date End Date Blu Celis NP [address] [place] [address] PCP - General Nurse Practitioner 05/11/23 Additional Source Comments The information contained in this document represents components of the legal health record. It is not the complete legal health record.[facility]
--- NOTE | 2025-03-13 12:42 | MHC.OFFVIS ---
Vital Signs 03/13/25 12:44 Height 5 ft 5 in Weight 135 lb BMI 22.5 BP 156/76 H Blood Pressure Location Rt brachial Position Sitting Pulse 64 Pulse Source Pulse Oximeter Pulse Oximetry (%) 100 Oxygen Delivery Method Room Air Intake Visit Reasons: Discuss Cologuard Order. Intake Note: New pt for initial eval and review of colonoscopy vs cologuard order. CC: Pt denies any GI sx or concerns at this time. Kiln Remover Required: No Accompanied by: Self / Same As Patient Allergies lisinopril Adverse Reaction (Mild, Verified 03/13/25 12:43) Cough HPI HPI Discuss Cologuard Order.: Details: Assessment & Plan (1) Family history of colon cancer in father: ?Comment: by age 42 ?Code(s): Z80.0 - Family history of malignant neoplasm of digestive organs ?Plan: She had prior colonoscopies with Dr. Vigil, her father at age 42 from CRC. She has never had polyps taken out. Her siblings have had polyps. We discuss all and she would prefer to do Cologuard and if positive do scope.? We watch the Cologuard video so she would understand and feel more comfortable with the process.? She was counseled that colonoscopy is still the gold standard for those with high risk but she has had 2- scoped prior to this.? I advised her that Cologuard needs to be repeated every 3 years. There are no prior problems with anesthesia or sedation. She denies any cardiac or respiratory problems. No infectious disease problems. Again her father at age 42 of colorectal cancer. Will order Cologuard my will see her in 6 weeks to review the results. (2) Screening for colon cancer: ?Code(s): Z12.11 - Encounter for screening for malignant neoplasm of colon CORRESPONDENCE On 12/25/24 @ 09:45 Olayinka Yousif Wrote To FarshadKarol Pt prefers to see you again as opposed to her PCP. Pt scheduled with you for February. On 12/24/24 @ 09:19 Karol Yen Wrote To Olayinka Yousif Please call the patient and advise her she is due for repeat Cologuard. She can either come to our office to have the test administered or have her PCP do it. Please advise On 12/22/24 @ 00:01 System Wrote To Yen,September Intended recipients are unable to receive; recipient updated to the creator Reminder sent to anusha TODAY'S VISIT [facility] Medical History H/O idiopathic thrombocytopenic purpura Encounter for other plastic and reconstructive surgery following medical procedure or healed injury HTN (hypertension) Squamous cell carcinoma in situ Surgical History Hx of colonoscopy H/O splenectomy H/O squamous cell carcinoma excision History of tubal ligation History of hysterectomy Social History Housing: House Patient Tobacco Use Status: Former Tobacco user Years Smoked: quit 15 years ago e-Cigarette/Vaping Use: Never Used Second Hand Smoke Exposure: No service: No Current occupational status: employed Current occupation: [employer] Current occupational exposures/hazards: Yes Cognitive needs: No Hearing needs: No Vision needs: No Review of Systems Const Denies fatigue, Denies fever(s), Denies night sweats, Denies poor appetite and Denies weight loss Eyes Details: Glasses Reports requires corrective lenses ENT Reports Normal hearing present, Denies dental pain, Denies dysphagia, Denies hearing loss, Denies mouth pain, Denies odynophagia, Denies throat swelling, Denies tongue swelling and Reports other (Dentition adequate) Card Reports no additional complaints Resp Reports no additional complaints GI Details: Denies abdominal pain, Denies melena, Denies bloating, Denies hematochezia, Denies constipation, Denies GI cramping, Denies dysphagia, Denies excessive flatus, Denies early satiety, Denies heartburn, Denies diarrhea, Denies nausea, Denies odynophagia, Denies vomiting and Denies hematemesis Skin/Breast Denies pruritus, Denies lesions, Denies rash and Denies jaundice Neuro Reports Normal hearing present and Denies Abnormal speech present Endo Denies fatigue Aller/Immun Denies throat swelling and Denies tongue swelling Physical Exam Vital Signs: Last Vital Signs Pulse 64 03/13/25 12:44 BP 156/76 H 03/13/25 12:44 Pulse Ox 100 03/13/25 12:44 Oxygen Delivery Method Room Air 03/13/25 12:44 BMI result Body Mass Index 22.5 Const General: cooperative, no acute distress, well developed and well groomed Nutritional Appearance: average body habitus and well nourished Orientation/consciousness: oriented to person, oriented to place and oriented to time Limitations: No language barrier HEENT Head: Yes normocephalic and Yes atraumatic Eyes General: appearance normal, both eyes and all related structures Pupils: Equal, round and reactive pupils present Neck Neck: Yes normal visual inspection Resp Effort & Inspection: normal respiratory effort and able to speak in complete sentences GI Inspection: No distended and No Abdominal panniculus present Palpation (GI): Soft to palpation, nontender, no guarding, not rigid and No hepatosplenomegaly present Percussion: Yes normal to percussion Auscultation: normal bowel sounds Rectal Exam - Female: deferred Skin General skin exam: no rashes or lesions noted, turgor normal, skin not dry, no jaundice, No spider nevi and no striae Rashes: no rashes Nails: normal Neuro General: oriented to person, oriented to place and oriented to time Cranial nerves: Yes Equal, round and reactive pupils present and Yes Normal hearing present Speech: No Abnormal speech present Extrem General: Yes normal to inspection, No clubbing, No cyanosis and No edema Psych Appearance: grossly normal and well kempt Mental Status: mental status grossly normal Speech and movement: Normal speech and movement present Affect: normal affect Attitude: cooperative Thought process: Normal thought process present and not confabulating Thought content: Normal thought content present Insight: Good insight present (Psych) Judgement: Good judgement present (Psych) Assessment & Plan Assessment & Plan (1) Family history of colon cancer in father: Comment: by age 42, negative Cologuard 2021 repeat 3 years Code(s): Z80.0 - Family history of malignant neoplasm of digestive organs Category: Medical Plan - The patient is a 59-year-old female presenting for routine colorectal cancer screening using Cologuard. - Family history of colorectal cancer is noted, prompting proactive screening measures. - The patient prefers a non-invasive Cologuard test; previously completed three years prior. She is aware that if it comes back positive then we need to discuss colonoscopy particularly in the context of her family history. She has had prior colonoscopies in his never had polyps. - No reports of new health issues, rectal bleeding, weight changes, or changes in bowel habits. Coding Level of Care Code New Pt Level 3 (71687) Diagnoses Family history of colon cancer in father Z80.0
[2025-03-13 12:44] VITALS: BP 156/76; PULSE 64; O2SAT 100; BMI 22.5
== END 2025-03-13 13:30 | disposition home or self-care (01) ==
LOC: HO.HGI 12:35
PROVIDERS: PCP Internal Medicine; Visit Provider Nurse Practitioner
DX: Z80.0 Family history of malignant neoplasm of digestive organs (principal)
CPT/HCPCS: 99203

== ENCOUNTER 2025-03-26 14:29 | Outpatient (AMB) | payer OTHER, SELFPAY ==
--- NOTE | 2025-03-26 15:01 | AM.OFFVISNUR ---
Intake Visit Reasons: Evenity #8 Allergies lisinopril Adverse Reaction (Mild, Verified 03/13/25 12:43) Cough Office Meds romosozumab-aqqg 210 mg/2.34 mL(105 mg/1.17 mL x2)subcutaneous syringe Performing Provider: Robin Lima MD Performing Location: [facility] Endocrinology Administered by: Sakshi Callahan RN on 03/26/25 15:01 Dose Route Admin Location Dispensed Lot Number Expiration Date [facility] Residential Solar Sales Consultant 210 mg subcut bilateral upper arms 2.34 mL [id number] 03/24/27 57650-591-82 AMGEN Total Dispensed Waste 2.34 mL 0 % Comments: No adverse reactions reported from previous injection. Pt tolerated injection well. Pt scheduled in 4 weeks for next appt. No further questions at this time. Assessment & Plan Assessment & Plan Orders: Orders AMB Romosozumab Injection Patient Supplied Today M81.0 - Age-related osteoporosis without current pathological fracture Coding
--- OUTSIDE RECORDS SUMMARY | 2025-03-26 16:05 | XMS_ITS | Clinical Summary ---
Author Organization [facility] Address [address] [facility] [address] [place] [address] Phone Care Team Providers Care Snuff Blender Name Role Phone Blu Celis NP Primary [...] topic Medical Devices Not on file Insurance [employer] [facility] [employer] CHOICE [employer] [facility] [place] [address] [facility] COMMUNITY CHOICE Care Teams Snuff Blender Relationship Specialty Start Date End Date Blu Celis NP [address] [place] [address] PCP - General Nurse Practitioner 05/11/23 Additional Source Comments The information contained in this document represents components of the legal health record. It is not the complete legal health record.[facility]
--- OUTSIDE RECORDS SUMMARY | 2025-03-26 16:05 | XMS_ITS | Patient Health Record ---
Author Organization [employer] [facility] Address [address] [place] [address] Support Name Relationship Address Phone ROBBY DAVISON [...] Status Risk Notes Problem Chronic lymphocytic thyroiditis (93821592) Chronic lymphocytic thyroiditis (245.2) Active confirmed Major Problem Hyperlipidemia (01098562) Other and unspecified hyperlipidemia (272.4) Active confirmed Major Problem Allergy (700007435) Allergy, unspecified not elsewhere classified (995.3) Active confirmed Diag Problem Gynecological examination normal (807934080889133) Routine gynecological examination (V72.31) Active confirmed Diag Plan Of Treatment No Information Insurance Providers Payer Name Payer Address Payer Phone Subscriber Number Group Number Insured Name Patient Relationship to Insured Coverage Start Date Coverage End Date [facility] STATE INDEMNITY PLAN [address] [place], [place] [id number] ROBBY CORRALES Self - patient is the insured
== END 2025-03-26 15:00 | disposition home or self-care (01) ==
LOC: HO.ENCR 14:29
PROVIDERS: PCP Nurse Practitioner Family; Visit Provider Internal Medicine Endocrinology, Diabetes & Metabolism
DX: M81.0 Age-related osteoporosis without current pathological fracture (principal)

== ENCOUNTER → 2025-03-26 14:29 | Outpatient (BNVA) | payer OTHER, SELFPAY | PROVIDERS: PCP Nurse Practitioner Family; Visit Provider Internal Medicine Endocrinology, Diabetes & Metabolism | DX: M81.0 Age-related osteoporosis without current pathological fracture (principal) | CPT/HCPCS: 96372; J3111 ==

== ENCOUNTER 2025-04-23 14:20 | Outpatient (AMB) | payer OTHER, SELFPAY ==
--- NOTE | 2025-04-23 14:46 | AM.OFFVISNUR ---
Intake Visit Reasons: Evenity #9 Allergies lisinopril Adverse Reaction (Mild, Verified 03/13/25 12:43) Cough Office Meds romosozumab-aqqg 210 mg/2.34 mL(105 mg/1.17 mL x2)subcutaneous syringe Performing Provider: Robin Lima MD Performing Location: [facility] Endocrinology Administered by: Sakshi Callahan RN on 04/23/25 14:40 Dose Route Admin Location Dispensed Lot Number Expiration Date [facility] Senior Quality Manager 210 mg subcut bilateral upper arms 2.34 mL [id number] 05/24/27 51550-172-26 AMGEN Total Dispensed Waste 2.34 mL 0 % Comments: No adverse reactions reported from previous injection. Pt tolerated injection well. Pt scheduled in 4 weeks for next appt. No further questions at this time. Assessment & Plan Assessment & Plan Orders: Orders AMB Romosozumab Injection Patient Supplied Today M81.0 - Age-related osteoporosis without current pathological fracture Coding
--- OUTSIDE RECORDS SUMMARY | 2025-04-23 17:22 | XMS_ITS | Clinical Summary ---
Author Organization [facility] Address [address] [facility] [address] [place] [address] Phone Care Team Providers Care Horticultural Specialty Grower Name Role Phone Blu Celis NP Primary [...] VACCINE (#1) 2025 COVID-19 VACCINE (1 - 2024-2 6 season) 2025 RSV VACCINE (1 - 1-dose [...] topic Medical Devices Not on file Insurance [employer] [facility] [employer] CHOICE [employer] [facility] [place] [address] [facility] COMMUNITY CHOICE Care Teams Horticultural Specialty Grower Relationship Specialty Start Date End Date Blu Celis NP [address] [place] [address] PCP - General Nurse Practitioner 05/11/23 Additional Source Comments The information contained in this document represents components of the legal health record. It is not the complete legal health record.[facility]
--- OUTSIDE RECORDS SUMMARY | 2025-04-23 17:22 | XMS_ITS | Patient Health Record ---
Author Organization [employer] [facility] Address [address] [place] [address] Support Name Relationship Address Phone ROBBY DAVISON Guarantor Unknown [phone] Reason For Referral No Information Medications Medication [...] Status Risk Notes Problem Chronic lymphocytic thyroiditis (54749321) Chronic lymphocytic thyroiditis (245.2) Active confirmed Major Problem Hyperlipidemia (68890868) Other and unspecified hyperlipidemia (272.4) Active confirmed Major Problem Allergy (023350286) Allergy, unspecified not elsewhere classified (995.3) Active confirmed Diag Problem Gynecological examination normal (046218917402780) Routine gynecological examination (V72.31) Active confirmed Diag Plan Of Treatment No Information Insurance Providers Payer Name Payer Address Payer Phone Subscriber Number Group Number Insured Name Patient Relationship to Insured Coverage Start Date Coverage End Date [facility] STATE INDEMNITY PLAN [address] [place], [place] [id number] ROBBY CORRALES Self - patient is the insured
== END 2025-04-23 14:45 | disposition home or self-care (01) ==
LOC: HO.ENCR 14:20
PROVIDERS: PCP Nurse Practitioner Family; Visit Provider Internal Medicine Endocrinology, Diabetes & Metabolism
DX: M81.0 Age-related osteoporosis without current pathological fracture (principal)

== ENCOUNTER → 2025-04-23 14:20 | Outpatient (BNVA) | payer OTHER, SELFPAY | PROVIDERS: PCP Nurse Practitioner Family; Visit Provider Internal Medicine Endocrinology, Diabetes & Metabolism | DX: M81.0 Age-related osteoporosis without current pathological fracture (principal); Z79.620 Long term (current) use of immunosuppressive biologic | CPT/HCPCS: 96372; J3111 ==

== ENCOUNTER 2025-05-25 14:16 | Outpatient (AMB) | payer OTHER, SELFPAY ==
--- NOTE | 2025-05-25 14:22 | MHC.OFFVIS ---
Vital Signs 05/25/25 14:42 Height 5 ft 5.16 in Weight 138 lb 7.205 oz BMI 22.9 BP 138/82 Blood Pressure Location Rt brachial Position Sitting Pulse 61 Pulse Source Pulse Oximeter Pulse Oximetry (%) 99 Oxygen Delivery Method Room Air Intake Visit Reasons: F/u Osteoporosis/Evenity #10 Intake Note: Patient present today for Osteoporosis follow up and Evenity Injection #10. 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 Accompanied by: Self / Same As Patient Allergies lisinopril Adverse Reaction (Mild, Verified 05/25/25 14:42) Cough Medication List - Last Reconciled 05/25/25 by Robin Lima MD amlodipine 2.5 mg PO DAILY atorvastatin 20 mg PO DAILY calcium carbonate (Alkums) 300 mg PO BID levothyroxine 112 mcg PO DAILY loratadine (Allergy Relief (loratadine)) 10 mg PO DAILY PRN losartan 100 mg PO DAILY 90 days multivitamin 1 tab PO DAILY romosozumab-aqqg (Evenity) 210 mg (2.34 mL) subcut .qmonth sertraline 25 mg PO DAILY HPI Comments Details: 60 YO Female is seen in consultation at the request of PCP for Osteoporosis. First diagnosed in few wks ago . Not Received treatment in the past history of pathologic fracture of wrist in 2002 fell in parking lot and right foot 03/2023 not sure how happened but ONJ. Has several servings of dietary calcium per day in the form of cheese, yogurt . Not Takes Calcium supplement in divided doses. Not Takes IU of Vitamin D daily. Denies ever using PPI, anticoagulant, antiepileptic or glucocorticoid medication. 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 UTD on dental cleanings and sees dentist every 6 months. No planned upcoming dental work or extractions. DXA dated 01/18/24: FINDINGS: LEFT FEMUR, NECK: BMD 0.632 g/cm2, Z-score -1.6, T-score -2.9, osteoporosis. LEFT FEMUR, TOTAL: BMD 0.615 g/cm2, Z-score -2.1, T-score -3.1, osteoporosis. AP SPINE L1-L4: BMD 0.660 g/cm2, Z-score -3.0, T-score -4.3, osteoporosis. IDENTIFIED RISK FACTORS: Early menopause, secondary osteoporosis, bilateral oophorectomy, hysterectomy, history of fracture (adult). HISTORY OF FRACTURE: Wrist. MEDICATIONS: Multivitamin. MM/XR DEXA axial skeleton IMPRESSION: 1. DIAGNOSIS: Severe osteoporosis based on the lowest T-score value of -4.3 in the lumbar spine and history of fracture applying [facility] Stress fx in right foot last yr and stress fx in left foot this yr Labs: Secondary workup negative. Patient was on Tymlos 80 mcg q.d. since 05/2024. Had nausea with injection and headache . No fracture since last visit. Currently on Evenity injection 10.. Tolerating well without any problems. Does complain of bilateral hip pain The patient is a 60 year old individual presenting for a follow-up visit for osteoporosis management and evaluation of new-onset bilateral hip pain. The patient is currently on the 10th of 12 planned Evenity injections for osteoporosis and has two months of treatment remaining. The patient reports feeling tired on the day of the injection but is otherwise tolerating the medication well, with no history of fractures during treatment. The patient has previously tried Tymlos but experienced problems with it. The most recent bone density scan was performed on January 18, 2024. The patient has recently developed increased bilateral hip pain or discomfort, which is predominantly on the left side. The pain is located in the hip area, and the patient does not feel as though anything is broken. - Evenity (romosozumab): The patient is on the 10th of 12 injections for osteoporosis, with the next two scheduled for June 22 and July 20. [facility] Medical History H/O idiopathic thrombocytopenic purpura Encounter for other plastic and reconstructive surgery following medical procedure or healed injury HTN (hypertension) Squamous cell carcinoma in situ Surgical History Hx of colonoscopy H/O splenectomy H/O squamous cell carcinoma excision History of tubal ligation History of hysterectomy Social History Housing: House Patient Tobacco Use Status: Former Tobacco user Years Smoked: quit 15 years ago e-Cigarette/Vaping Use: Never Used Second Hand Smoke Exposure: No service: No Current occupational status: employed Current occupation: [employer] Current occupational exposures/hazards: Yes Cognitive needs: No Hearing needs: No Vision needs: No Physical Exam Vital Signs: BMI result Body Mass Index 22.9 Assessment & Plan Assessment & Plan (1) Osteoporosis: Code(s): M81.0 - Age-related osteoporosis without current pathological fracture Category: Medical Plan: This is a 59-year-old white female with a history of severe osteoporosis with a history of stress fracture of the foot and wrist fracture. Secondary causes have been ruled out. Tried Tymlos for 2 months but could not tolerate. On Evenity injection 10. 1. Osteoporosis The patient is a 60-year-old individual who is nearing completion of a 12-month course of Evenity. The patient reports tolerating the medication well, with the only side effect being fatigue on the day of injection. The plan is to transition to Prolia to maintain and continue building bone density, as studies suggest this sequence improves outcomes. The long-term goal is to potentially transition to a bisphosphonate such as Reclast or alendronate and eventually stop medication if bone density is sufficiently improved. Continue and complete the final two Evenity injections, with the last one in June. Start Prolia (denosumab) injections every six months, with the first dose to be administered at the end of July, about four weeks after the final Evenity injection. Obtain blood work two weeks prior to the first Prolia injection. Schedule a follow-up bone density scan after one year of Prolia therapy (after the second injection) to assess treatment efficacy. 2. Bilateral Hip Pain The patient reports new-onset bilateral hip pain, which is worse on the left side. This is a concerning symptom in the context of osteoporosis treatment, as it raises suspicion for a rare but serious side effect known as an atypical femoral fracture. Although the patient's symptoms may be muscular, imaging is warranted to rule out an impending or partial fracture, which can occur even without trauma. Order bilateral hip X-rays (minimal three views) to evaluate for atypical femoral fracture. This is to be done on a non-emergent basis. The patient is instructed to go to hospital radiology for the X-rays, where no appointment is needed. If X-ray results are abnormal or inconclusive, will consider a second opinion on the read or further imaging, potentially an MRI. The office will follow up with the patient regarding the results. Patient was informed and verbally consented to the use of an ambient scribe for clinic note documentation during this visit. Plan is to continue the Evenity for full years time and then will transition to Prolia in 08/2025 Orders: Orders XR hips LUKE min 3V Today M81.0 - Age-related osteoporosis without current pathological fracture Calcium 2 Months M81.0 - Age-related osteoporosis without current pathological fracture Albumin Level 2 Months M81.0 - Age-related osteoporosis without current pathological fracture Basic Metabolic Panel Fasting 2 Months M81.0 - Age-related osteoporosis without current pathological fracture Coding Level of Care Code Est Pt Level 3 (48842) Diagnoses Osteoporosis M81.0
[2025-05-25 14:42] VITALS: BP 138/82; PULSE 61; O2SAT 99; BMI 22.9
--- OUTSIDE RECORDS SUMMARY | 2025-05-25 17:42 | XMS_ITS | Clinical Summary ---
Author Organization [facility] Address [address] [place] [id number] Phone Care Team Providers Care Mitigation Supervisor Name Role Phone Blu Celis NP Primary [...] topic Medical Devices Not on file Insurance [employer] [facility] [employer] CHOICE [employer] [place] [id number] [facility] Care Teams Mitigation Supervisor Relationship Specialty Start Date End Date Blu Celis NP [address] [place] [address] PCP - General Nurse Practitioner 05/11/23 Additional Source Comments The information contained in this document represents components of the legal health record. It is not the complete legal health record.[facility]
== END 2025-05-25 15:31 | disposition home or self-care (01) ==
LOC: HO.ENCR 14:17
PROVIDERS: PCP Nurse Practitioner Family; Visit Provider Internal Medicine Endocrinology, Diabetes & Metabolism
DX: M81.0 Age-related osteoporosis without current pathological fracture (principal)
CPT/HCPCS: 99213

== ENCOUNTER → 2025-05-25 14:16 | Outpatient (BNVA) | payer OTHER, SELFPAY | PROVIDERS: PCP Nurse Practitioner Family; Visit Provider Internal Medicine Endocrinology, Diabetes & Metabolism | DX: M81.0 Age-related osteoporosis without current pathological fracture (principal) | CPT/HCPCS: 96372; J3111 ==

== ENCOUNTER 2025-06-01 10:56 | Outpatient (REF) | payer OTHER, SELFPAY ==
--- NOTE | ~2025-06-01 | XR_ITS ---
EXAMINATION: XR BILATERAL HIPS WITH AP PELVIS CLINICAL INFORMATION: M81.0 - Age-related osteoporosis without current pathological fracture COMPARISON: None available. TECHNIQUE: AP view of the pelvis and frog-leg lateral views of each hip were obtained. FINDINGS: Left hip: Small marginal osteophytes are present involving the acetabular roof. There are minute marginal sites involving the left femoral head. Joint spaces preserved. Right hip: Joint spaces preserved. There are no degenerative changes. No abnormal calcific patient is are evident in the soft tissues. XR/XR hips LUKE min 3V IMPRESSION: Mild osteoarthritis of the left hip. Unremarkable right hip. Electronically signed by: Alex Schmitz MD 06/01/2025 11:17 AM REYNA
== END 2025-06-01 10:57 | disposition home or self-care (01) ==
LOC: HO.HMGCX 10:56
PROVIDERS: PCP Internal Medicine; Visit Provider Internal Medicine Endocrinology, Diabetes & Metabolism
DX: M81.0 Age-related osteoporosis without current pathological fracture (principal)
CPT/HCPCS: 73522

== ENCOUNTER → 2025-06-01 11:00 | Outpatient (BNV) | payer OTHER, SELFPAY | PROVIDERS: PCP Internal Medicine; Visit Provider Radiology Diagnostic Radiology | DX: M16.0 Bilateral primary osteoarthritis of hip (principal) | CPT/HCPCS: 73522 ==

== ENCOUNTER 2025-06-24 14:13 | Outpatient (AMB) | payer OTHER, SELFPAY ==
--- NOTE | 2025-06-24 14:54 | AM.OFFVISNUR ---
Intake Visit Reasons: Evenity #11 Allergies lisinopril Adverse Reaction (Mild, Verified 05/25/25 14:42) Cough Office Meds romosozumab-aqqg 210 mg/2.34 mL(105 mg/1.17 mL x2)subcutaneous syringe Performing Provider: Robin Lima MD [place] [facility] [place] Administered by: Sakshi Callahan RN on 06/24/25 14:30 Dose Route Admin Location Dispensed Lot Number Expiration Date [facility] Service Dog Trainer 210 mg subcut bilateral upper arms 2.34 mL [id number] 10/23/27 76262-399-28 [employer] Total Dispensed Waste 2.34 mL 0 % Comments: No adverse reactions reported from previous injection. Pt tolerated injection well. Pt scheduled in 4 weeks for next appt. No further questions at this time. Assessment & Plan Assessment & Plan Orders: Orders AMB Romosozumab Injection Patient Supplied Today M81.0 - Age-related osteoporosis without current pathological fracture Coding
--- OUTSIDE RECORDS SUMMARY | 2025-06-24 15:26 | XMS_ITS | Clinical Summary ---
Author Organization [facility] Address [address] [place] [address] Phone Care Team Providers Care Enrollment Services Vice President Name Role Phone Blu Celis NP Primary [...] topic Medical Devices Not on file Insurance [employer] [facility] [employer] CHOICE [employer] [facility] [id number] [facility] [employer] Care Teams Enrollment Services Vice President Relationship Specialty Start Date End Date Blu Celis NP [address] [place] [address] PCP - General Nurse Practitioner 05/11/23 Additional Source Comments The information contained in this document represents components of the legal health record. It is not the complete legal health record.[facility]
--- OUTSIDE RECORDS SUMMARY | 2025-06-24 15:26 | XMS_ITS | Patient Health Record ---
Author Organization [facility] Address [address] [place] [address] Support Name Relationship Address Phone ROBBY DAVISON [...] Status Risk Notes Problem Chronic lymphocytic thyroiditis (89018624) Chronic lymphocytic thyroiditis (245.2) Active confirmed Major Problem Hyperlipidemia (65893786) Other and unspecified hyperlipidemia (272.4) Active confirmed Major Problem Allergy (766355589) Allergy, unspecified not elsewhere classified (995.3) Active confirmed Diag Problem Gynecological examination normal (350758873765337) Routine gynecological examination (V72.31) Active confirmed Diag Plan Of Treatment No Information Insurance Providers Payer Name Payer Address Payer Phone Subscriber Number Group Number Insured Name Patient Relationship to Insured Coverage Start Date Coverage End Date [facility] STATE INDEMNITY PLAN [address] [place], [place] [id number] ROBBY CORRALES Self - patient is the insured
== END 2025-06-24 14:39 | disposition home or self-care (01) ==
LOC: HO.ENCR 14:13
PROVIDERS: PCP Internal Medicine; Visit Provider Internal Medicine Endocrinology, Diabetes & Metabolism
DX: M81.0 Age-related osteoporosis without current pathological fracture (principal)

== ENCOUNTER → 2025-06-24 14:13 | Outpatient (BNVA) | payer OTHER, SELFPAY | PROVIDERS: PCP Internal Medicine; Visit Provider Internal Medicine Endocrinology, Diabetes & Metabolism | DX: M81.0 Age-related osteoporosis without current pathological fracture (principal) | CPT/HCPCS: 96372; J3111 ==